=== PATIENT | female | born 1990 | race Caucasian/White ===

== ENCOUNTER 2017-03-13 23:29 | Emergency (ER) | payer BC ==
[2017-03-13 23:58] VITALS: BP 111/58
[2017-03-14] MEDS ORDERED: Orphenadrine 100 MG Tab.ER PO STA (01:06)
--- NOTE | 2017-03-14 01:12 | EDM.PDOC ---
ED HPI GENERAL MEDICAL PROBLEM - General Chief Complaint: Back Pain or Injury Stated Complaint: BACK PAIN Time Seen by Provider: 03/14/17 00:13 Source of Information: Reports: Patient, Family (Sister), RN Notes Reviewed History Limitations: Reports: No Limitations - History of Present Illness INITIAL COMMENTS - FREE TEXT/NARRATIVE: The patient states that she has had pain around her left scapula since 03/10/2017. She denies having had any injury. The pain is worse with deep breaths and coughing. A friend attempted to stretch the muscle, which only seemed to make it worse. She states that she has tried Tylenol, ibuprofen, Aleve, none of which haven't helped. No prior similar symptoms. The patient's PCP is Seda Reynolds, who has not been made aware of this situation. 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 Left Shoulder Pain Score (Numeric/FACES): 9 - Related Data Allergies Allergy/AdvReac Type Severity Reaction Status Date / Time No Known Allergies Allergy Verified 03/13/17 23:54 Home Meds: Home Meds Sertraline HCl [Sertraline HCl] 03/13/17 [History] Orphenadrine [Norflex] 1 tab PO Q12H #20 tab.er 03/14/17 [Rx] Past Medical History Psychiatric History: Reports: Anxiety, Depression - Past Surgical History Musculoskeletal Surgical History: Reports: ORIF (left humerus) Social & Family History - Family History Family Medical History: Noncontributory - Tobacco Use Smoking Status *Q: Current Every Day Smoker Years of Tobacco use: 9 Packs/Tins Daily: 1 - Alcohol Use Alcohol Use History: No - Recreational Drug Use Recreational Drug Use: No - Living Situation & Occupation Living situation: Reports: Single, with Family (Sister, [id number], niece) 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, [employer]) ED ROS GENERAL - Review of Systems Review Of Systems: See Below Constitutional: Reports: No Symptoms HEENT: Reports: No Symptoms Respiratory: Reports: No Symptoms Cardiovascular: Reports: No Symptoms Endocrine: Reports: No Symptoms GI/Abdominal: Reports: No Symptoms : Reports: No Symptoms Musculoskeletal: Reports: No Symptoms Skin: Reports: No Symptoms Neurological: Reports: No Symptoms Psychiatric: Reports: No Symptoms Hematologic/Lymphatic: Reports: No Symptoms Immunologic: Reports: No Symptoms ED EXAM, UPPER BACK/NECK PAIN - Physical Exam Exam: See Below Exam Limited By: No Limitations General Appearance: Alert, WD/WN, No Apparent Distress Eye Exam: Bilateral Eye: Normal Inspection Ears Exam: Normal External Exam, Hearing Grossly Normal Nose Exam: Normal Inspection, No Blood Throat/Mouth Exam: Normal Inspection, Normal Lips, Normal Voice, No Airway Compromise Head Exam: Atraumatic, Normocephalic Neck Exam: Normal Alignment, Normal Inspection Cardiovascular/Respiratory: Regular Rate, Rhythm, No M/R/G, Normal Peripheral Pulses, No JVD, Normal Breath Sounds, No Respiratory Distress GI/Abdominal: Normal Bowel Sounds, Soft, Non-Tender, No Organomegaly, No Distention, No Abnormal Bruit, No Mass (Female) Exam: Deferred Rectal (Female) Exam: Deferred Back Exam: Normal Inspection, Full Range of Motion, Other (Reproducible tenderness to palpation of the medial left parascapular muscles. Some muscle spasm is palpable in this area.) Extremities: Normal Inspection, Normal Range of Motion, No Pedal Edema, Normal Capillary Refill Neurologic: No Motor/Sensory Deficits, Alert, Oriented x 3 Psychiatric: Normal Affect Skin Exam: Normal Color, Warm/Dry Lymphatic: No Adenopathy Course - Vital Signs Last Recorded V/S: Last Vital Signs Temp 36.4 C 03/13/17 23:55 Pulse 70 03/13/17 23:55 Resp 18 03/13/17 23:55 BP 111/58 L 03/13/17 23:55 Pulse Ox 98 03/13/17 23:55 - Orders/Labs/Meds Orders: Active Orders 24 hr Category Date Time Status Chest 2V [CR] Stat Exams 03/14/17 00:34 Taken Meds: Medications Discontinued Medications Generic Name Dose Route Start Last Admin Trade Name Freq PRN Reason Stop Dose Admin Orphenadrine Citrate 100 mg 03/14/17 01:06 03/14/17 01:19 Norflex PO 03/14/17 01:07 100 mg ONETIME STA Administration - Radiology Interpretation Free Text/Narrative:: Two-view chest radiograph appears to be grossly normal. Cardiac silhouette is within normal limits. No pulmonary vascular congestion. No pleural effusions. No focal infiltrate. No pneumothorax. Formal read per the Radiologist pending. - Re-Assessments/Exams Free Text/Narrative Re-Assessment/Exam: 03/14/17 01:07 Chest radiograph results discussed with the patient and her sister. Her chest radiograph is normal. No pneumothorax or infiltrate to explain her left parascapular pain. Because it is reproducible with palpation, this appears to be due to a muscle spasm. I will start the patient on Norflex and e-prescribe the same. Departure - Departure Time of Disposition: 01:10 Disposition: Home, Self-Care 01 Condition: good Clinical Impression: Muscle spasm of back - Discharge Information Prescriptions: Orphenadrine [Norflex] 1 tab PO Q12H #20 tab.er Instructions: Muscle Cramps and Spasms Referrals: Lashae Reynolds INGREDIENT SCALER HELPER [Primary Care Provider] - Forms: ED Department Discharge Additional Instructions: You were seen in the emergency room for pain in your left shoulder blade area since Thursday. Workup in the ER included a chest x-ray, which was normal. You do not have pneumonia. You do not have a collapsed lung. Because your pain is reproducible with pressing on the muscle, it appears that your pain is due to a muscle spasm. You have been started on the muscle relaxant Norflex. Take one tablet every 12 hours, as prescribed. You may also take [id number] ibuprofen, 2-3 tablets (400-600 mg) every 8 hours, with food, as needed for discomfort. Followup with your PCP, Seda Reynolds, as needed. If any other problems, please do not hesitate to return to the ER. - My Orders Last 24 Hours: My Active Orders 03/14/17 00:34 Chest 2V [CR] Stat - Assessment/Plan Last 24 Hours: My Active Orders 03/14/17 00:34 Chest 2V [CR] Stat
--- NOTE | 2017-03-15 08:17 | CR ---
Chest: Two views of the chest were obtained. Comparison: No previous chest x-ray. Heart size and mediastinum are normal. Lungs are clear. Bony structures appear within normal limits for the patient's age. Plate and screws are partially seen within a humerus. Lungs are slightly hyperinflated. Impression: 1. Lungs are slightly hyperinflated. Please correlate if patient is a smoker or has asthma. 2. Other incidental findings. Nothing acute is appreciated. Diagnostic code #2
== END 2017-03-14 01:27 | disposition home or self-care (01) ==
LOC: JD.ED 23:29
DX: M62.830 Muscle spasm of back (principal); F41.9 Anxiety disorder, unspecified; F32.9 Major depressive disorder, single episode, unspecified; F17.210 Nicotine dependence, cigarettes, uncomplicated; Z79.899 Other long term (current) drug therapy
CPT/HCPCS: 71020; 99283; A9270

== ENCOUNTER 2017-07-13 00:47 | Emergency (ER) | payer BC, MEDICAID, OTHER ==
[2017-07-13 00:57] VITALS: BP 128/80
--- NOTE | 2017-07-13 01:19 | EDM.PDOC ---
ED HPI GENERAL MEDICAL PROBLEM - General Chief Complaint: Upper Extremity Injury/Pain Stated Complaint: FEELS LIKE RIGHT ARM HAS NO SERQULATION Time Seen by Provider: 07/13/17 01:05 Source of Information: Reports: Patient History Limitations: Reports: No Limitations - History of Present Illness INITIAL COMMENTS - FREE TEXT/NARRATIVE: The patient presents with a problem with her right arm. She feels there is a problem with the circulation. She admits to injecting meth in her right arm. She feels there is something wrong with her arm. She has some numbness at times and she has some pain. She has no redness, edema and her arm is not cold. She denies fever chills or cough. Onset: Gradual Duration: Week(s): (4) Location: Reports: Upper Extremity, Right Quality: Reports: Ache Severity: Moderate Improves with: Reports: None Worsens with: Reports: None Context: Reports: Activity (She admits to injecting meth in her right arm) Associated Symptoms: Reports: No Other Symptoms Right Arm Pain Score (Numeric/FACES): 5 - Related Data Allergies Allergy/AdvReac Type Severity Reaction Status Date / Time No Known Allergies Allergy Verified 07/13/17 00:56 Home Meds: Home Meds . [No Known Home Meds] 07/13/17 [History] Past Medical History - Past Health History Medical/Surgical History: Denies Medical/Surgical History Psychiatric History: Reports: Anxiety, Depression - Past Surgical History Musculoskeletal Surgical History: Reports: ORIF Social & Family History - Family History Family Medical History: Noncontributory - Tobacco Use Smoking Status *Q: Current Every Day Smoker Years of Tobacco use: 9 Packs/Tins Daily: 1 - Recreational Drug Use Recreational Drug Use: No - Living Situation & Occupation Living situation: Reports: Single, with Family (Sister, [id number], niece) 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, [employer], 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) Review of Systems - Review of Systems Review Of Systems: See Below Constitutional: Reports: No Symptoms Eyes: Reports: No Symptoms Ears: Reports: No Symptoms Nose: Reports: No Symptoms Mouth/Throat: Reports: No Symptoms Respiratory: Reports: No Symptoms Cardiovascular: Reports: No Symptoms GI/Abdominal: Reports: No Symptoms Genitourinary: Reports: No Symptoms Musculoskeletal: Reports: Other (Right arm numbness and pain) ED EXAM, GENERAL - Physical Exam Exam: See Below Exam Limited By: No Limitations General Appearance: Alert, No Apparent Distress Ears: Normal External Exam Nose: Normal Inspection Head: Atraumatic, Normocephalic Neck: Normal Inspection Respiratory/Chest: No Respiratory Distress, Lungs Clear, Normal Breath Sounds Cardiovascular: Regular Rate, Rhythm, No Edema, No Murmur GI/Abdominal: Soft, Non-Tender, No Organomegaly, No Mass Back Exam: Normal Inspection Extremities: Other (No erythema or edema to the right arm. Good sensation and pulses distally. Multiple puncuture wounds to the veins in her arm.) Course - Vital Signs Last Recorded V/S: Last Vital Signs Temp 98 F 07/13/17 00:54 Pulse 87 07/13/17 00:54 Resp 16 07/13/17 00:54 BP 128/80 07/13/17 00:54 Pulse Ox 100 07/13/17 00:54 - Re-Assessments/Exams Free Text/Narrative Re-Assessment/Exam: 07/13/17 01:18 She has good distal pulses so she has no arterial compromise. She has no erythema or edema to her arm. She needs to stop using meth. Departure - Departure Time of Disposition: 01:20 Disposition: Home, Self-Care 01 Condition: Good Clinical Impression: Methamphetamine abuse, Right arm pain - Discharge Information Additional Instructions: Please stop using meth. There are many risks from the meth and injecting such as local infections in your arm and infections to your heart or brain. See [facility]. They can help you stop.
== END 2017-07-13 01:28 | disposition home or self-care (01) ==
LOC: JD.ED 00:47
DX: F15.10 Other stimulant abuse, uncomplicated (principal); M79.601 Pain in right arm; F17.210 Nicotine dependence, cigarettes, uncomplicated
CPT/HCPCS: 99283

== ENCOUNTER 2017-07-21 14:40 | Emergency (ER) | payer MEDICAID, OTHER ==
--- NOTE | 2017-07-21 14:59 | EDM.PDOC ---
ED HPI GENERAL MEDICAL PROBLEM - General Chief Complaint: Upper Extremity Injury/Pain Stated Complaint: RIGHT ARM INJURY Time Seen by Provider: 07/21/17 15:15 Source of Information: Reports: Patient History Limitations: Reports: No Limitations - History of Present Illness INITIAL COMMENTS - FREE TEXT/NARRATIVE: 26-year-old female presents the ED for evaluation of right upper extremity deep aching pain. Patient states it's been using intravenous drugs on a daily basis i.e. injecting methamphetamine right arm for the last month. She stopped 5 days ago. 5 days ago the pain started and it's in the antecubital fossa and radiating up the arm particularly in the distribution of the radial nerve into the right shoulder deltoid area. She's been using the antecubital fossa primarily for IV drug use. Also been using the dorsal forearm vein. No fever no chills deep aching constant pain aggravated by certain movements. Onset: Gradual (about 5 days ago) Onset Date: 07/17/17 Duration: Day(s): Location: Reports: Upper Extremity, Left ( shoulder.) Quality: Reports: Ache, Pressure, Throbbing Severity: Moderate Improves with: Reports: None Worsens with: Reports: Movement (certain movements such as pronation supination seem to make it worse.) Context: Reports: Other (IV drug user i.e. injecting methamphetamines into the antecubital fossa on the side.). Denies: Activity, Exercise, Lifting, Sick Contact, Trauma Associated Symptoms: Reports: No Other Symptoms Treatments FILTERER: Reports: Other (see below) (none) Right Arm Pain Score (Numeric/FACES): 8 - Related Data Allergies Allergy/AdvReac Type Severity Reaction Status Date / Time No Known Allergies Allergy Verified 07/21/17 14:54 Home Meds: Home Meds Ibuprofen [Motrin] 800 mg PO Q6H #24 tablet 07/21/17 [Rx] Past Medical History - Past Health History Medical/Surgical History: Denies Medical/Surgical History Psychiatric History: Reports: Anxiety, Depression - Past Surgical History Musculoskeletal Surgical History: Reports: ORIF Social & Family History - Family History Family Medical History: Noncontributory - Tobacco Use Smoking Status *Q: Current Every Day Smoker Years of Tobacco use: 9 Packs/Tins Daily: 1 - Recreational Drug Use Recreational Drug Use: No Drug Use in Last 12 Months: Yes Recreational Drug Type: Reports: Methamphetamine - Living Situation & Occupation Living situation: Reports: Single, with Family (Sister, [id number], niece) 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 See history of present illness) Skin: Reports: Bruising Neurological: Reports: No Symptoms (and skeletal fossa right side from IV drug use.) Psychiatric: Reports: No Symptoms ED EXAM, GENERAL - Physical Exam Exam: See Below Exam Limited By: No Limitations General Appearance: Alert, WD/WN, Anxious, Mild Distress Extremities: Other (examination was limited to the right upper extremity. 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 There is ecchymoses in the antecubital fossa most recent IV drug injection. There is also darkening of the vein on the radial forearm. Pain is worsened on palpation of the biceps tendon where it inserts into the ulna and worsened with pronation supination movements. Pain is deep and aching in travels in the radial nerve distribution around the mid humerus up into the axilla and shoulder area and the deltoid muscle. There was no evidence of any apical epitrochlear lymphadenopathy or axillary adenopathy. The biceps muscle itself is within normal limits. There is no signs of infection in this limb or phlebitis. It appears that she has missed the vein and struck her biceps tendon and/or radial nerve causing neuritis or tendinitis which is causing the pain in her right upper extremity. She plans on not using methamphetamines anymore. She' s not interested in treatment at this time.) Neurological: Alert, Oriented, CN II-XII Intact, Normal Cognition, Normal Gait Psychiatric: Anxious Skin Exam: Warm, Dry, Intact, Normal Color, No Rash Course - Vital Signs Last Recorded V/S: Last Vital Signs Temp 36.2 C 07/21/17 14:54 Pulse 88 07/21/17 14:54 Resp 16 07/21/17 14:54 BP 123/80 07/21/17 14:54 Pulse Ox 99 07/21/17 14:54 - Radiology Interpretation Free Text/Narrative:: 26 show female presents to the ED for evaluation of right upper extremity pain. Appears this is secondary to IV drug abuse for the last month. Started injecting on a daily basis methamphetamines. Antecubital fossa was utilized on many occasions for IV drug injection. Pain started in the right antecubital fossa and radiates up the arm for the last 5 days. This scared her enough that she stopped using methamphetamines with minimal withdrawal symptoms. At this time she does not plan on going back to this habit. On examination she is exquisitely tender on palpation of the biceps tendon where it inserts into the ulna. The pain travels along the distribution of the radial nerve i.e. around the lateral mid humerus and then up into the axilla and shoulder area. Further appears to be a component of either referred pain from the tendon itself or radial nerve neuritis as well. There is no evidence of infection in this limb or phlebitis. Or DVT. Plan Motrin 800 mg every 6-8 hours when necessary for the next 10 days to use simply can alleviate some of the inflammation. She should be followed for follow-up in 14 days time if not markedly improved. Departure - Departure Time of Disposition: 15:16 Disposition: Home, Self-Care 01 Condition: Fair Clinical Impression: Biceps tendonitis on right, Neuritis - Discharge Information Prescriptions: Ibuprofen [Motrin] 800 mg PO Q6H #24 tablet Referrals: PCP,None [Primary Care Provider] - Forms: ED Department Discharge Additional Instructions: evaluation in the emergency department today in regards to right upper extremity pain for the last 5 days. This appears to be the result of intravenous drug abuse. The needle appears to have inadvertently hit the biceps tendon where it inserts into the ulnar bone on her forearm. The distribution of the pain however is in the radial nerve distribution suggesting possible irritation of the radial nerve as well which we call neuritis. There is no evidence of an infection in the venous system or in the arm itself. There is no lymph node swelling. Treatment is time to heal. Suggest anti-inflammatory such as Motrin 800 mg every 6-8 hours to reduce pain and inflammation. May place ice he heat on the arm as well at bedtime it as this may alleviate some of the pain and allow sleep. This pain will dissipate over time nerve pain usually within 6 weeks to 12 weeks .tendinitis usually would dissipate over a period of 6 weeks.
[2017-07-21 15:00] VITALS: BP 123/80
== END 2017-07-21 15:25 | disposition home or self-care (01) ==
LOC: JD.ED 14:40
DX: M75.21 Bicipital tendinitis, right shoulder (principal); M79.2 Neuralgia and neuritis, unspecified; F32.9 Major depressive disorder, single episode, unspecified; F17.210 Nicotine dependence, cigarettes, uncomplicated; Z98.890 Other specified postprocedural states
CPT/HCPCS: 99283

== ENCOUNTER 2017-08-08 00:02 | Emergency (ER) | payer MEDICAID, OTHER ==
[2017-08-08 00:33] VITALS: BP 127/89
--- NOTE | 2017-08-08 01:33 | EDM.PDOC ---
ED HPI GENERAL MEDICAL PROBLEM - General Chief Complaint: Skin Complaint Stated Complaint: SKIN AND SHOULDER INFECTION Time Seen by Provider: 08/08/17 00:29 Source of Information: Reports: Patient, RN Notes Reviewed History Limitations: Reports: Altered Mental Status (The patient is somewhat hyperactive, agitated, and has difficulty focusing on questions) - History of Present Illness INITIAL COMMENTS - FREE TEXT/NARRATIVE: The patient states that she developed a lump to her left forearm around for 5 days ago. She acknowledges that it is in an area that she has been injecting methamphetamine. She states that the pain from her lump radiates up her left upper extremity to her right upper extremity and right scapular area. She believes that her right upper extremity is swollen and red. She has not had a fever, and is afebrile here in the ED. She also reports feeling lightheaded sometimes. It is noted that her oxygen saturation here in the ED is 100% on room air. Of note, the patient has a history of anxiety and depression, but has not taken any of her psychiatric medications for about one month. She was seen by Marie Wong NP, at the clinic 08/05/2017. The patient states that no test were done, but that she was prescribed Keflex 500 mg po Q12 hrs x 7 days. The patient states that she has been compliant with this. She now presents to the ED because of failure of resolution of her symptoms. She states that she was told by Ms. Wong that the antibiotic would be effective within 2 hours. The patient states that she has been injecting 1/4 to 1/2 g of methamphetamine per day for the past month. Her last use was yesterday morning, 08/07/2017. She states that she has been in inpatient drug and alcohol treatment 3 times - the first in 2009 at [facility] for 30 days, then in 2010 for 7 days before she got kicked out, then in 2013 for one month. She states that she has never gone to outpatient treatment. The patient does not have a PCP. Right Shoulder Pain Score (Numeric/FACES): 9 - Related Data Allergies Allergy/AdvReac Type Severity Reaction Status Date / Time No Known Allergies Allergy Verified 07/21/17 14:54 Home Meds: Home Meds Ibuprofen [Motrin] 800 mg PO Q6H #24 tablet 07/21/17 [Rx] Past Medical History Musculoskeletal History: Reports: Fracture (left humerus) Psychiatric History: Reports: Addiction (methamphetamine), Anxiety (untreated), Depression (untreated) - Past Surgical History Musculoskeletal Surgical History: Reports: ORIF (left humerus) Social & Family History - Family History Family Medical History: Noncontributory - Tobacco Use Smoking Status *Q: Current Every Day Smoker Years of Tobacco use: 10 Packs/Tins Daily: 0.5 - Caffeine Use Caffeine Use: Reports: Coffee, Energy Drinks, Soda, Tea - Alcohol Use Alcohol Use History: Yes Date/Time of Last Drink Comment: History of alcoholism. No alcohol since 2013. - Recreational Drug Use Recreational Drug Use: Yes Drug Use in Last 12 Months: Yes Recreational Drug Type: Reports: Benzodiazepines, Dilaudid, Marijuana/Hashish ( smokes on occasion), Methamphetamine (injects once or twice a day), Oxycodone, Vicodin - Living Situation & Occupation Living situation: Reports: Single, Alone Occupation: Unemployed ED ROS GENERAL - Review of Systems Review Of Systems: See Below Constitutional: Reports: No Symptoms HEENT: Reports: No Symptoms Respiratory: Reports: No Symptoms Cardiovascular: Reports: No Symptoms Endocrine: Reports: No Symptoms GI/Abdominal: Reports: No Symptoms : Reports: No Symptoms Musculoskeletal: Reports: No Symptoms Skin: Reports: No Symptoms Neurological: Reports: No Symptoms Psychiatric: Reports: No Symptoms Hematologic/Lymphatic: Reports: No Symptoms Immunologic: Reports: No Symptoms ED EXAM, SKIN/RASH Exam: See Below Exam Limited By: No Limitations General Appearance: Alert, WD/WN, Anxious Eye Exam: Bilateral Eye: Normal Inspection Ears: Normal External Exam, Hearing Grossly Normal Nose: Normal Inspection, No Blood Throat/Mouth: Normal Inspection, Normal Lips, Normal Voice, No Airway Compromise Head: Atraumatic, Normocephalic Neck: Normal Inspection, Full Range of Motion Respiratory/Chest: No Respiratory Distress, Lungs Clear, Normal Breath Sounds, No Accessory Muscle Use Cardiovascular: Normal Peripheral Pulses, Regular Rate, Rhythm, No Gallop, No JVD, No Murmur, No Rub Peripheral Pulses: 4+: Radial (L), Radial (R) GI/Abdominal: Normal Bowel Sounds, Soft, Non-Tender, No Organomegaly, No Distention, No Abnormal Bruit, No Mass (Female) Exam: Deferred Rectal (Female) Exam: Deferred Back Exam: Normal Inspection, Full Range of Motion, Other (No visible abnormality to the patient's back, such as erythema, swelling, ecchymosis, abrasion, or rash.) Extremities: Normal Range of Motion, No Pedal Edema, Normal Capillary Refill, Other (There is an indurated lump measuring approximately 1.5 cm diameter, with mild erythema, tender to palpation, on the proximal aspect of the left forearm, over the radius. Areas no associated surrounding erythema or streaking. No swelling or erythema to the left forearm. No visible abnormal [place] of the right forearm, such as swelling, erythema, ecchymosis, or abrasions. Neurovascular status of both upper summaries is intact) Neurological: Alert, Oriented, No Motor/Sensory Deficits, Other (Mentally agitated) Psychiatric: Anxious Skin: Warm, Dry, Intact, Normal Color, No Rash Course - Vital Signs Last Recorded V/S: Last Vital Signs Temp 36.6 C 08/08/17 00:28 Pulse 113 H 08/08/17 00:28 Resp 20 08/08/17 00:28 BP 127/89 08/08/17 00:28 Pulse Ox 100 08/08/17 00:28 - Orders/Labs/Meds Orders: Active Orders 24 hr Category Date Time Status CBC WITH MANUAL DIFF [HEME] Stat Lab 08/08/17 01:38 Results CULTURE BLOOD [BC] Stat Lab 08/08/17 01:38 Received CULTURE BLOOD [BC] Stat Lab 08/08/17 01:47 Received Blood Culture x2 Reflex Set [OM.PC] Stat Oth 08/08/17 01:23 Ordered Labs: Laboratory Tests 08/08/17 Range/Units 01:38 WBC 7.24 (3.98-10.04) K/mm3 RBC 4.49 (3.98-5.22) M/mm3 Hgb 13.6 (11.2-15.7) gm/L Hct 40.4 (34.1-44.9) % MCV 90.0 (79.4-94.8) fl MCH 30.3 (25.6-32.2) pg MCHC 33.7 (32.2-35.5) g/dl RDW Std Deviation 44.7 (36.4-46.3) fL Plt Count 193 (182-369) K/mm3 MPV 10.7 (9.4-12.3) fl - Re-Assessments/Exams Free Text/Narrative Re-Assessment/Exam: 08/08/17 01:39 The lump on the patient's left forearm does not appear to be significantly infected, and I see no signs of spreading infection. There is no murmur on auscultation of the patient's heart, and she does not have a fever, therefore, clinically, I do not suspect endocarditis. Nevertheless, I have ordered a CBC and 2 blood cultures. If the patient's WBC count is elevated with bandemia, I will likely broaden the patient's antibiotic coverage. If her WBC count is unremarkable, then I believe that Keflex is an appropriate antibiotic. If the patient's blood cultures return positive, antibiotics could then be specified. 08/08/17 02:09 The patient's CBC is normal. From an infection standpoint, I am recommending that she continue the Keflex as currently prescribed. I will refer her to Dr. Bridges or Dr. Cannon for follow-up. The patient acknowledged that she needs to stop using methamphetamine. I offered to call [facility] to see if we could arrange for a crisis bed for the patient, however, the patient refused, saying that she has some things that she needs to get done before she can go into treatment. She agreed to go to [facility] 08/10/2017, for evaluation. I explained that she does not need to have an appointment if she shows up between the hours of 08:00 and 10:30. Departure - Departure Time of Disposition: 02:11 Disposition: Home, Self-Care 01 Condition: Fair Clinical Impression: Skin infection, Methamphetamine abuse - Discharge Information Referrals: PCP,None [Primary Care Provider] - Yasmeen Bridges [Physician] - Forms: ED Department Discharge Additional Instructions: You were seen in the emergency room for a concern of a spreading infection. Workup in the ER included a CBC and 2 blood cultures. Your CBC returned normal, indicating you do not have a systemic infection. We recommend that you continue taking the Keflex every 12 hours, as prescribed. We recommend that you follow-up with either Dr. Bridges or Dr. Cannon in the clinic early this coming week, for continued treatment. We STRONGLY recommend going to [facility] on Thursday, 2016, between the hours of 8:00 and 10:30, for evaluation. No appointment necessary. They are located at: [address] [place] [address] If any other problems, please do not hesitate to return to the ER. - My Orders Last 24 Hours: My Active Orders 08/08/17 01:23 Blood Culture x2 Reflex Set [OM.PC] Stat 08/08/17 01:38 CBC WITH MANUAL DIFF [HEME] Stat CULTURE BLOOD [BC] Stat 08/08/17 01:47 CULTURE BLOOD [BC] Stat - Assessment/Plan Last 24 Hours: My Active Orders 08/08/17 01:23 Blood Culture x2 Reflex Set [OM.PC] Stat 08/08/17 01:38 CBC WITH MANUAL DIFF [HEME] Stat CULTURE BLOOD [BC] Stat 08/08/17 01:47 CULTURE BLOOD [BC] Stat
== END 2017-08-08 02:23 | disposition home or self-care (01) ==
LOC: JD.ED 00:02
DX: L08.9 Local infection of the skin and subcutaneous tissue, unspecified (principal); M25.511 Pain in right shoulder; F15.10 Other stimulant abuse, uncomplicated; F41.9 Anxiety disorder, unspecified; F32.9 Major depressive disorder, single episode, unspecified; F17.210 Nicotine dependence, cigarettes, uncomplicated
CPT/HCPCS: 36415; 85025; 87040; 99282; 99283

== ENCOUNTER 2017-10-09 18:17 | Emergency (ER) | payer MEDICAID ==
[2017-10-09 18:31] VITALS: BP 122/72
[2017-10-09] MEDS ORDERED: Ketorolac 30 MG/ML SDV IVPUSH ONE (19:16)
[2017-10-09] MEDS ORDERED: Sodium Chloride 0.9% 10 ML Syringe FLUSH PRN (19:16)
[2017-10-09] MEDS ORDERED: Ondansetron 4 MG/2 ML SDV IVPUSH ONE (19:16)
[2017-10-09] MEDS ORDERED: Sodium Chloride 0.9% 1,000 ML IV ONE (19:16)
--- NOTE | 2017-10-09 19:42 | EDM.PDOC ---
ED HPI GENERAL MEDICAL PROBLEM - General Chief Complaint: Abdominal Pain Stated Complaint: SENT BY CLINIC FOR FLUIDS Time Seen by Provider: 10/09/17 18:42 Source of Information: Reports: Patient History Limitations: Reports: No Limitations - History of Present Illness INITIAL COMMENTS - FREE TEXT/NARRATIVE: 26 year old female present from the clinic for fluids. Patient was recently, about 3 weeks ago, diagnosed with hepatitis C. Likely from her previous IV drug use. She has now been clean since finding out she has hep C . She is scheduled to see GI in [place] in early October for further treatment and management. Patient called the clinic today reports symptoms of nausea, headaches, vomiting and fatigue. She reports her eyes look jaundice and sunken. She feels her liver is swollen. No change in stool color. Urine is darker than normal. Denies any pruritus. She reports pain in her abdomen and into her back. She was instructed to come to the ER for fluids. Patient reports she only drinks socially and has not done so in several years. Left Abdomen Pain Score (Numeric/FACES): 3 - Related Data Allergies Allergy/AdvReac Type Severity Reaction Status Date / Time No Known Allergies Allergy Verified 07/21/17 14:54 Home Meds: Home Meds Ibuprofen [Motrin] 800 mg PO Q6H #24 tablet 07/21/17 [Rx] Ondansetron [Zofran ODT] 4 mg PO Q6H PRN #20 tab.dis 10/09/17 [Rx] Venlafaxine [Effexor] 37.5 mg PO DAILY 10/09/17 [History] hydrOXYzine HCl [Atarax] 25 mg PO TID PRN 10/09/17 [History] traZODone 50 mg PO DAILY 10/09/17 [History] Past Medical History - Past Health History Medical/Surgical History: Denies Medical/Surgical History Musculoskeletal History: Reports: Fracture Psychiatric History: Reports: Addiction, Anxiety, Depression - Past Surgical History Musculoskeletal Surgical History: Reports: ORIF Other Musculoskeletal Surgeries/Procedures:: left arm Social & Family History - Family History Family Medical History: Noncontributory - Tobacco Use Smoking Status *Q: Current Every Day Smoker Years of Tobacco use: 10 Packs/Tins Daily: 0.5 - Caffeine Use Caffeine Use: Reports: Coffee, Energy Drinks, Soda, Tea - Recreational Drug Use Recreational Drug Use: Yes Drug Use in Last 12 Months: Yes Recreational Drug Type: Reports: Methamphetamine Other Recreational Drug Type: injection Recreational Drug Use Frequency: Daily - Living Situation & Occupation Living situation: Reports: Single, Alone Occupation: Unemployed ED ROS GENERAL - Review of Systems Review Of Systems: See Below Constitutional: Reports: Malaise, Fatigue. Denies: Fever GI/Abdominal: Reports: Abdominal Pain, Nausea, Vomiting : Reports: Other (reports darker urine than normal). Denies: Dysuria Musculoskeletal: Reports: Back Pain Skin: Reports: Jaundice (eyes). Denies: Pruritis Neurological: Reports: Headache ED EXAM, GI/ABD - Physical Exam Exam: See Below Exam Limited By: No Limitations General Appearance: Alert, WD/WN, No Apparent Distress Eyes: Bilateral: Normal Appearance Ears: Normal External Exam Nose: Normal Inspection Throat/Mouth: Normal Inspection, Normal Lips, Normal Voice, No Airway Compromise Neck: Normal Inspection Respiratory/Chest: No Respiratory Distress, Lungs Clear, Normal Breath Sounds Cardiovascular: Normal Peripheral Pulses, Regular Rate, Rhythm, No Murmur GI/Abdominal Exam: Normal Bowel Sounds, Soft, Non-Tender, No Organomegaly, No Distention Neurological: Alert, Oriented, Normal Cognition Psychiatric: Normal Affect, Normal Mood Skin Exam: Warm, Dry, Normal Color. No: Jaundice Course - Vital Signs Last Recorded V/S: Last Vital Signs Temp 36.5 C 10/09/17 18:30 Pulse 98 10/09/17 18:30 Resp 20 10/09/17 18:30 BP 122/72 10/09/17 18:30 Pulse Ox 100 10/09/17 18:30 - Orders/Labs/Meds Labs: Laboratory Tests 10/09/17 10/09/17 10/09/17 Range/Units 19:25 19:25 19:25 WBC 7.99 (3.98-10.04) K/mm3 RBC 4.34 (3.98-5.22) M/mm3 Hgb 13.4 (11.2-15.7) gm/L Hct 40.8 (34.1-44.9) % MCV 94.0 (79.4-94.8) fl MCH 30.9 (25.6-32.2) pg MCHC 32.8 (32.2-35.5) g/dl RDW Std Deviation 47.2 H (36.4-46.3) fL Plt Count 196 (182-369) K/mm3 MPV 11.4 (9.4-12.3) fl Neut % (Auto) 47.5 (34.0-71.1) % Lymph % (Auto) 41.9 (19.3-51.7) % [place] % (Auto) 7.9 (4.7-12.5) % Eos % (Auto) 1.9 (0.7-5.8) Baso % (Auto) 0.5 (0.1-1.2) % Neut # (Auto) 3.80 (1.56-6.13) K/mm3 Lymph # (Auto) 3.35 (1.18-3.74) K/mm3 [place] # (Auto) 0.63 H (0.24-0.36) K/mm3 Eos # (Auto) 0.15 (0.04-0.36) K/mm3 Baso # (Auto) 0.04 (0.01-0.08) K/mm3 PT 10.7 (8.0-13.0) SECONDS INR 0.98 APTT 27 (22-36) SECONDS Sodium 141 (136-145) mEq/L Potassium 3.7 (3.5-5.1) mEq/L Chloride 106 (98-107) mEq/L Carbon Dioxide 27 (21-32) mEq/L Anion Gap 11.7 (5-15) BUN 17 (7-18) mg/dL Creatinine 0.8 (0.55-1.02) mg/dL Est Cr Clr Drug Dosing 99.76 mL/min Estimated GFR (MDRD) > 60 (>60) mL/min BUN/Creatinine Ratio 21.3 H (14-18) Glucose 85 (74-106) mg/dL Calcium 9.2 (8.5-10.1) mg/dL Total Bilirubin 0.4 (0.2-1.0) mg/dL AST 27 (15-37) U/L ALT 32 (14-59) U/L Alkaline Phosphatase 66 (46-116) U/L Total Protein 7.7 (6.4-8.2) g/dl Albumin 3.9 (3.4-5.0) g/dl Globulin 3.8 gm/dL Albumin/Globulin Ratio 1.0 (1-2) Urine Color (Yellow) Urine Appearance (Clear) Urine pH (5.0-8.0) Ur Specific [place] (1.005-1.030) Urine Protein (Negative) Urine Glucose (UA) (Negative) Urine Ketones (Negative) Urine Occult Blood (Negative) Urine Nitrite (Negative) Urine Bilirubin (Negative) Urine Urobilinogen (0.2-1.0) Ur Leukocyte Esterase (Negative) Urine RBC (0-5) /hpf Urine WBC (0-5) /hpf Ur Epithelial Cells (0-5) /hpf Urine Bacteria (FEW) /hpf Urine Mucus (FEW) /hpf 10/09/17 Range/Units 19:25 WBC (3.98-10.04) K/mm3 RBC (3.98-5.22) M/mm3 Hgb (11.2-15.7) gm/L Hct (34.1-44.9) % MCV (79.4-94.8) fl MCH (25.6-32.2) pg MCHC (32.2-35.5) g/dl RDW Std Deviation (36.4-46.3) fL Plt Count (182-369) K/mm3 MPV (9.4-12.3) fl Neut % (Auto) (34.0-71.1) % Lymph % (Auto) (19.3-51.7) % [place] % (Auto) (4.7-12.5) % Eos % (Auto) (0.7-5.8) Baso % (Auto) (0.1-1.2) % Neut # (Auto) (1.56-6.13) K/mm3 Lymph # (Auto) (1.18-3.74) K/mm3 [place] # (Auto) (0.24-0.36) K/mm3 Eos # (Auto) (0.04-0.36) K/mm3 Baso # (Auto) (0.01-0.08) K/mm3 PT (8.0-13.0) SECONDS INR APTT (22-36) SECONDS Sodium (136-145) mEq/L Potassium (3.5-5.1) mEq/L Chloride (98-107) mEq/L Carbon Dioxide (21-32) mEq/L Anion Gap (5-15) BUN (7-18) mg/dL Creatinine (0.55-1.02) mg/dL Est Cr Clr Drug Dosing mL/min Estimated GFR (MDRD) (>60) mL/min BUN/Creatinine Ratio (14-18) Glucose (74-106) mg/dL Calcium (8.5-10.1) mg/dL Total Bilirubin (0.2-1.0) mg/dL AST (15-37) U/L ALT (14-59) U/L Alkaline Phosphatase (46-116) U/L Total Protein (6.4-8.2) g/dl Albumin (3.4-5.0) g/dl Globulin gm/dL Albumin/Globulin Ratio (1-2) Urine Color Yellow (Yellow) Urine Appearance Clear (Clear) Urine pH 6.5 (5.0-8.0) Ur Specific [place] 1.020 (1.005-1.030) Urine Protein Negative (Negative) Urine Glucose (UA) Negative (Negative) Urine Ketones Negative (Negative) Urine Occult Blood Negative (Negative) Urine Nitrite Negative (Negative) Urine Bilirubin Negative (Negative) Urine Urobilinogen 0.2 (0.2-1.0) Ur Leukocyte Esterase Negative (Negative) Urine RBC 0-5 (0-5) /hpf Urine WBC 0-5 (0-5) /hpf Ur Epithelial Cells 0-5 (0-5) /hpf Urine Bacteria Few (FEW) /hpf Urine Mucus Few (FEW) /hpf Meds: Medications Discontinued Medications Generic Name Dose Route Start Last Admin Trade Name Freq PRN Reason Stop Dose Admin Sodium Chloride 1,000 mls @ 999 mls/hr 10/09/17 19:16 10/09/17 19:33 Normal Saline IV 10/09/17 20:16 999 mls/hr ONETIME ONE Administration Ketorolac Tromethamine 30 mg 10/09/17 19:16 10/09/17 19:33 Toradol IVPUSH 10/09/17 19:17 30 mg ONETIME ONE Administration Ondansetron HCl 4 mg 10/09/17 19:16 10/09/17 19:33 Zofran IVPUSH 10/09/17 19:17 4 mg ONETIME ONE Administration Sodium Chloride 10 ml 10/09/17 19:16 10/09/17 19:33 Saline Flush FLUSH 10 ml ASDIRECTED PRN Administration Keep Vein Open - Re-Assessments/Exams Free Text/Narrative Re-Assessment/Exam: 10/09/17 20:46 I reviewed the labs with the patient. She feels improved after fluids. I will have her continue with her current plan of care. Discharge instructions as documented . Departure - Departure Time of Disposition: 20:46 Disposition: Home, Self-Care 01 Condition: Good Clinical Impression: Nausea - Discharge Information Prescriptions: Ondansetron [Zofran ODT] 4 mg PO Q6H PRN #20 tab.dis PRN Reason: Nausea Instructions: Nausea, Adult Referrals: Lashae Reynolds TRAVEL ACC[employer]MODATION INSPECTOR [Primary Care Provider] - Forms: ED Department Discharge Additional Instructions: Zofran 1 tab sublingual every 6 hours as needed for nausea. make sure you are drinking plenty of fluids. Follow up with your primary care provider Thursday as planned. Please return to the ER should your symptoms change or worsen.
== END 2017-10-09 21:02 | disposition home or self-care (01) ==
LOC: JD.ED 18:17
DX: R11.2 Nausea with vomiting, unspecified (principal); F17.210 Nicotine dependence, cigarettes, uncomplicated; Z79.899 Other long term (current) drug therapy
CPT/HCPCS: 36415; 80053; 81001; 85025; 85610; 85730; 96361; 96374; 96375; 99284; J1885; J2405; J7040; J7050

== ENCOUNTER 2017-10-18 22:26 | Emergency (ER) | payer MEDICAID ==
[2017-10-18 22:42] VITALS: BP 125/76
== END 2017-10-18 23:24 | disposition left against medical advice (07) ==
LOC: JD.ED 22:26
DX: Z53.21 Procedure and treatment not carried out due to patient leaving prior to being seen by health care provider (principal)
CPT/HCPCS: 99284

== ENCOUNTER 2018-02-13 23:34 | Emergency (ER) | payer MEDICAID ==
[2018-02-13 23:44] VITALS: BP 132/87
[2018-02-14] MEDS ORDERED: Ampicillin/Sulbactam Na 3 GM in Sodium Chloride 0.9% 100 ML IV ONE (00:12)
[2018-02-14] MEDS ORDERED: LORazepam 2 MG/ML SDV IVPUSH STA (00:15)
[2018-02-14] MEDS ORDERED: Sodium Chloride 0.9% 1,000 ML IV SCH (00:15)
--- NOTE | 2018-02-14 00:16 | EDM.PDOC ---
ED HPI GENERAL MEDICAL PROBLEM - General Chief Complaint: Upper Extremity Injury/Pain Stated Complaint: DRUG USE Time Seen by Provider: 02/13/18 23:50 Source of Information: Reports: Patient, Significant Other (Boyfriend) History Limitations: Reports: Altered Mental Status - History of Present Illness INITIAL COMMENTS - FREE TEXT/NARRATIVE: History is very difficult to obtain from the patient, as she is likely under the influence of methamphetamine. She has difficulty focusing on questions asked of her, but perseverates on the idea that one of her teeth is falling out. She repeatedly asks for water, implying that her tooth will fall out if she does not get any immediately. She expresses paranoia, stating several times that she hopes that this is not a set up. 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 She states that she was in a 30 day inpatient treatment program for most, if not all, of September 2017, and that she has been clean since, up until last night. She states that she simply wanted to buy marijuana. She gave $40 to someone, who then returned with methamphetamine instead. The patient states that she knew it was a bad idea, but she injected the methamphetamine with a used needle numerous times in both antecubital fossas, as she kept missing a vein. She now presents with swelling and erythema to the left anterior cubital fossa. She states that her left arm feels like it is going to "blow up". She is concerned that there is an infection in her arm. Her right antecubital fossa has several ecchymoses, but no swelling or erythema. The patient states that she has known hepatitis C due to IVDA. She is not known to be HIV positive. The patient states that she does not have a PCP, but her current psychiatric medications are prescribed by Dr. Stein at [facility]. left upper arm Pain Score (Numeric/FACES): 5 - Related Data Allergies Allergy/AdvReac Type Severity Reaction Status Date / Time No Known Allergies Allergy Verified 02/13/18 23:44 Home Meds: Home Meds Venlafaxine [Effexor] 37.5 mg PO DAILY 10/09/17 [History] hydrOXYzine HCl [Atarax] 25 mg PO TID PRN 10/09/17 [History] traZODone 50 mg PO DAILY 12/22/17 [History] risperiDONE [Risperdal] 2 mg PO BEDTIME 10/18/17 [History] Amoxicillin/Clavulanate K [Augmentin 875-125 MG] 1 tab PO Q12H #14 tablet [Rx] Past Medical History Musculoskeletal History: Reports: Fracture (left humerus) Psychiatric History: Reports: Addiction (Methamphetamine), Anxiety, Depression - Infectious Disease History Infectious Disease History: Reports: Hepatitis C - Past Surgical History Musculoskeletal Surgical History: Reports: ORIF (left humerus) Social & Family History - Family History Family Medical History: Noncontributory - Tobacco Use Smoking Status *Q: Current Every Day Smoker Years of Tobacco use: 11 Packs/Tins Daily: 0.5 - Caffeine Use Caffeine Use: Reports: Soda - Alcohol Use Alcohol Use History: Yes Date/Time of Last Drink Comment: History of alcoholism, but sober since 2013 - Recreational Drug Use Recreational Drug Use: Yes Drug Use in Last 12 Months: Yes Recreational Drug Type: Reports: Benzodiazepines, Marijuana/Hashish, Methamphetamine, Other (see below) (Opioids) Other Recreational Drug Type: injection Recreational Drug Use Frequency: Binges - Living Situation & Occupation Living situation: Reports: Single, Alone Occupation: Unemployed Review of Systems - Review of Systems Review Of Systems: ROS reveals no pertinent complaints other than HPI. ED EXAM, GENERAL - Physical Exam Exam: See Below Exam Limited By: Altered Mental Status General Appearance: Alert, WD/WN Eye Exam: Bilateral Eye: Normal Inspection Ears: Normal External Exam, Hearing Grossly Normal Nose: Normal Inspection, No Blood Throat/Mouth: Normal Inspection, Normal Lips, Normal Teeth (tooth #9 slightly loose?), Normal Gums, Normal Oropharynx, Normal Voice, No Airway Compromise Head: Atraumatic, Normocephalic Neck: Normal Inspection, Full Range of Motion Respiratory/Chest: No Respiratory Distress, Lungs Clear, Normal Breath Sounds, No Accessory Muscle Use Cardiovascular: Normal Peripheral Pulses, No Edema, No Gallop, No JVD, No Murmur , No Rub, Tachycardia (regular) Peripheral Pulses: 4+: Radial (L), Radial (R) GI/Abdominal: Normal Bowel Sounds, Soft, Non-Tender, No Organomegaly, No Distention, No Abnormal Bruit, No Mass (Female) Exam: Deferred Rectal (Female) Exam: Deferred Back Exam: Normal Inspection, Full Range of Motion, NT Extremities: Normal Range of Motion, No Pedal Edema, Normal Capillary Refill, Other (Swelling and erythema to the left antecubital fossa measuring approximately 5 cm wide by 9 cm in length. Minimal tenderness to this area. No fluctuance. Mild calor. Neurovascular status of the left upper extremity is intact. Several ecchymosis to the right antecubital fossa, but no associated swelling or erythema.) Neurological: Alert, No Motor/Sensory Deficits, Other (Hyperactive. Perseverates on ideas.) Psychiatric: Anxious, Other (Paranoid) Skin Exam: Warm, Dry, Intact, Normal Color, No Rash EKG INTERPRETATION EKG Date: 02/14/18 Time: 00:20 Rhythm: NSR Rate (Beats/Min): [address] [place]: Normal P-Wave: Present QRS: Normal ST-T: Normal QT: Normal Comparison: NA - No Prior EKG Course - Vital Signs Last Recorded V/S: Last Vital Signs Temp 36.9 C 02/13/18 23:40 Pulse 115 H 02/13/18 23:40 Resp 18 02/13/18 23:40 BP 132/87 02/13/18 23:40 Pulse Ox 98 02/13/18 23:40 - Orders/Labs/Meds Orders: Active Orders 24 hr Category Date Time Status EKG Documentation Completion [RC] STAT Care 02/14/18 00:07 Active CULTURE BLOOD [BC] Stat Lab 02/14/18 00:15 Received CULTURE BLOOD [BC] Stat Lab 02/14/18 00:37 Received DRUG SCREEN, URINE [URCHEM] Stat Lab 02/14/18 02:27 Ordered HCG QUALITATIVE,URINE [URCHEM] Stat Lab 02/14/18 02:27 Ordered Sodium Chloride 0.9% [Normal Saline] 1,000 ml Med 02/14/18 00:15 Active IV ASDIRECTED Blood Culture x2 Reflex Set [OM.PC] Stat Oth 02/14/18 00:11 Ordered Medication Orders Sodium Chloride (Normal Saline) 1,000 mls @ 150 mls/hr IV ASDIRECTED RAYSHAWN Last Admin: 02/14/18 00:34 Dose: 150 mls/hr Labs: Laboratory Tests 02/14/18 02/14/18 02/14/18 Range/Units 00:15 00:15 00:15 WBC 11.82 H (3.98-10.04) K/mm3 RBC 4.67 (3.98-5.22) M/mm3 Hgb 14.4 (11.2-15.7) gm/L Hct 42.9 (34.1-44.9) % MCV 91.9 (79.4-94.8) fl MCH 30.8 (25.6-32.2) pg MCHC 33.6 (32.2-35.5) g/dl RDW Std Deviation 44.0 (36.4-46.3) fL Plt Count 187 (182-369) K/mm3 MPV 11.3 (9.4-12.3) fl Neutrophils % (Manual) 68 H (40-60) % Band Neutrophils % 0 (0-10) % Lymphocytes % (Manual) 27 (20-40) % Atypical Lymphs % 0 % Monocytes % (Manual) 4 (2-10) % Eosinophils % (Manual) 0 L (0.7-5.8) % Basophils % (Manual) 1 (0.1-1.2) Platelet Estimate Adequate RBC Morph Comment Normal Sodium 139 (136-145) mEq/L Potassium 3.5 (3.5-5.1) mEq/L Chloride 103 (98-107) mEq/L Carbon Dioxide 22 (21-32) mEq/L Anion Gap 17.5 H (5-15) BUN 12 (7-18) mg/dL Creatinine 1.0 (0.55-1.02) mg/dL Est Cr Clr Drug Dosing 79.11 mL/min Estimated GFR (MDRD) > 60 (>60) mL/min BUN/Creatinine Ratio 12.0 L (14-18) Glucose 125 H (74-106) mg/dL Calcium 9.8 (8.5-10.1) mg/dL Magnesium 1.9 (1.8-2.4) mg/dl Total Bilirubin 1.1 H (0.2-1.0) mg/dL AST 163 H (15-37) U/L ALT 176 H (14-59) U/L Alkaline Phosphatase 103 (46-116) U/L Total Protein 8.2 (6.4-8.2) g/dl Albumin 4.7 (3.4-5.0) g/dl Globulin 3.5 gm/dL Albumin/Globulin Ratio 1.3 (1-2) TSH 3rd Generation 2.801 (0.358-3.74) uIU/mL Urine HCG, Qual (NEGATIVE) Urine Opiates Screen (NEGATIVE) Ur Buprenorphine Scrn (NEGATIVE) Ur Oxycodone Screen (NEGATIVE) Urine Methadone Screen (NEGATIVE) Ur Propoxyphene Screen (NEGATIVE) Ur Barbiturates Screen (NEGATIVE) Ur Tricyclics Screen (NEGATIVE) Ur Phencyclidine Scrn (NEGATIVE) Ur Amphetamine Screen (NEGATIVE) U Methamphetamines Scrn (NEGATIVE) U Benzodiazepines Scrn (NEGATIVE) U Cocaine Metab Screen (NEGATIVE) U Marijuana (THC) Screen (NEGATIVE) Ethyl Alcohol 0.00 (0.00) gm% HIV-1 Ab Rapid Screen Negative (NEGATIVE) 02/14/18 02/14/18 Range/Units 02:27 02:27 WBC (3.98-10.04) K/mm3 RBC (3.98-5.22) M/mm3 Hgb (11.2-15.7) gm/L Hct (34.1-44.9) % MCV (79.4-94.8) fl MCH (25.6-32.2) pg MCHC (32.2-35.5) g/dl RDW Std Deviation (36.4-46.3) fL Plt Count (182-369) K/mm3 MPV (9.4-12.3) fl Neutrophils % (Manual) (40-60) % Band Neutrophils % (0-10) % Lymphocytes % (Manual) (20-40) % Atypical Lymphs % % Monocytes % (Manual) (2-10) % Eosinophils % (Manual) (0.7-5.8) % Basophils % (Manual) (0.1-1.2) Platelet Estimate RBC Morph Comment Sodium (136-145) mEq/L Potassium (3.5-5.1) mEq/L Chloride (98-107) mEq/L Carbon Dioxide (21-32) mEq/L Anion Gap (5-15) BUN (7-18) mg/dL Creatinine (0.55-1.02) mg/dL Est Cr Clr Drug Dosing mL/min Estimated GFR (MDRD) (>60) mL/min BUN/Creatinine Ratio (14-18) Glucose (74-106) mg/dL Calcium (8.5-10.1) mg/dL Magnesium (1.8-2.4) mg/dl Total Bilirubin (0.2-1.0) mg/dL AST (15-37) U/L ALT (14-59) U/L Alkaline Phosphatase (46-116) U/L Total Protein (6.4-8.2) g/dl Albumin (3.4-5.0) g/dl Globulin gm/dL Albumin/Globulin Ratio (1-2) TSH 3rd Generation (0.358-3.74) uIU/mL Urine HCG, Qual Negative (NEGATIVE) Urine Opiates Screen Negative (NEGATIVE) Ur Buprenorphine Scrn Negative (NEGATIVE) Ur Oxycodone Screen Negative (NEGATIVE) Urine Methadone Screen Negative (NEGATIVE) Ur Propoxyphene Screen Negative (NEGATIVE) Ur Barbiturates Screen Negative (NEGATIVE) Ur Tricyclics Screen Negative (NEGATIVE) Ur Phencyclidine Scrn Negative (NEGATIVE) Ur Amphetamine Screen Presumptive positive H (NEGATIVE) U Methamphetamines Scrn Negative (NEGATIVE) U Benzodiazepines Scrn Negative (NEGATIVE) U Cocaine Metab Screen Negative (NEGATIVE) U Marijuana (THC) Screen Presumptive positive H (NEGATIVE) Ethyl Alcohol (0.00) gm% HIV-1 Ab Rapid Screen (NEGATIVE) Meds: Medications Generic Name Dose Route Start Last Admin Trade Name Freq PRN Reason Stop Dose Admin Sodium Chloride 1,000 mls @ 150 mls/hr 02/14/18 00:15 02/14/18 00:34 Normal Saline IV 150 mls/hr ASDIRECTED RAYSHAWN Administration Discontinued Medications Generic Name Dose Route Start Last Admin Trade Name Freq PRN Reason Stop Dose Admin Ampicillin Sodium/Sulbactam 100 mls @ 200 mls/hr 02/14/18 00:12 02/14/18 00: 41 Sodium 3 gm/ Sodium Chloride IV 02/14/18 00:41 200 mls/hr ONETIME ONE Administration Lorazepam 1 mg 02/14/18 00:15 02/14/18 00:33 Ativan IVPUSH 02/14/18 00:16 1 mg ONETIME STA Administration - Re-Assessments/Exams Free Text/Narrative Re-Assessment/Exam: 02/14/18 03:12 The patient's WBC count is elevated at 11.82, but with 0% bandemia. Her transaminases are elevated, possibly due to previously known hepatitis C. Her urine drug screen is positive for amphetamine and marijuana. Remainder of her workup is unremarkable. The patient received 3 g IV Unasyn and 1 mg IV Ativan to calm her down. She would now like to go home. I will discharge her with a prescription for Augmentin, to help cover anaerobes, however, the patient will need to follow-up in the clinic. I will refer her to Dr. Cannon. Departure - Departure Time of Disposition: 03:15 Disposition: Home, Self-Care 01 Condition: Fair Clinical Impression: IV drug abuse, Methamphetamine abuse, Infection of injection site - Discharge Information Prescriptions: Amoxicillin/Clavulanate K [Augmentin 875-125 MG] 1 tab PO Q12H #14 tablet Referrals: PCP,None [Primary Care Provider] - Courtney Cannon MD [Physician] - Forms: ED Department Discharge Additional Instructions: You were seen in the emergency room for possible infection of your left arm following IV methamphetamine injection. Workup in the ER included blood work, blood cultures, a urine drug screen, a urine test, and an ECG. You received IV antibiotics in the ER. You have been prescribed the antibiotic Augmentin. Take one tablet every 12 hours, as prescribed. It is very important that you follow-up with Dr. Courtney Cannon in the clinic this week, regarding your arm infection. We STRONGLY recommend that you follow-up at [facility] this week, regarding your methamphetamine use. If any other problems, please do not hesitate to return to the ER. - My Orders Last 24 Hours: My Active Orders 02/14/18 00:07 EKG Documentation Completion [RC] STAT 02/14/18 00:11 Blood Culture x2 Reflex Set [OM.PC] Stat 02/14/18 00:15 CULTURE BLOOD [BC] Stat Sodium Chloride 0.9% [Normal Saline] 1,000 ml IV ASDIRECTED 02/14/18 00:37 CULTURE BLOOD [BC] Stat 02/14/18 02:27 DRUG SCREEN, URINE [URCHEM] Stat HCG QUALITATIVE,URINE [URCHEM] Stat - Assessment/Plan Last 24 Hours: My Active Orders 02/14/18 00:07 EKG Documentation Completion [RC] STAT 02/14/18 00:11 Blood Culture x2 Reflex Set [OM.PC] Stat 02/14/18 00:15 CULTURE BLOOD [BC] Stat Sodium Chloride 0.9% [Normal Saline] 1,000 ml IV ASDIRECTED 02/14/18 00:37 CULTURE BLOOD [BC] Stat 02/14/18 02:27 DRUG SCREEN, URINE [URCHEM] Stat HCG QUALITATIVE,URINE [URCHEM] Stat
== END 2018-02-14 03:39 | disposition home or self-care (01) ==
LOC: JD.ED 23:34
DX: T80.29XA Infection following other infusion, transfusion and therapeutic injection, initial encounter (principal); F15.10 Other stimulant abuse, uncomplicated; F17.210 Nicotine dependence, cigarettes, uncomplicated; Z79.899 Other long term (current) drug therapy
CPT/HCPCS: 36415; 80053; 80306; 81025; 83735; 84443; 85025; 87040; 93005; 96361; 96365; 96375; 99284; G0433; G0480; J0295; J2060; J7030; J7040; 93010

== ENCOUNTER 2018-02-14 05:39 | Emergency (ER) | payer MEDICAID | END 2018-02-14 05:53 | disposition left against medical advice (07) | LOC: JD.ED 05:39 | DX: Z53.21 Procedure and treatment not carried out due to patient leaving prior to being seen by health care provider (principal) ==

== ENCOUNTER 2018-02-14 06:56 | Emergency (ER) | payer MEDICAID ==
[2018-02-14] MEDS ORDERED: Haloperidol Lactate 5 MG/ML SDV IM ONE (07:10)
[2018-02-14] MEDS ORDERED: LORazepam 2 MG/ML SDV IM ONE (07:10)
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
[2018-02-14] MEDS ORDERED: Dextrose 5%-0.9% NaCl 1,000 ML IV SCH (07:45)
[2018-02-14] MEDS ORDERED: Vancomycin 1.5 GM in Sodium Chloride 0.9% 500 ML IV ONE (08:04)
[2018-02-14 10:05] VITALS: BP 101/52
[2018-02-14] MEDS: LORazepam 2 MG/ML SDV IVPUSH ONE ×2 (10:45→12:35)
[2018-02-14] MEDS ORDERED: Haloperidol Lactate 5 MG/ML SDV IVPUSH ONE (12:32)
[2018-02-14] MEDS ORDERED: Haloperidol Lactate 5 MG/ML SDV ONE (12:34)
== END 2018-02-14 16:52 ==
LOC: JD.ED 06:56
DX: L03.114 Cellulitis of left upper limb (principal); F15.10 Other stimulant abuse, uncomplicated; F23 Brief psychotic disorder; Z79.899 Other long term (current) drug therapy; Z86.19 Personal history of other infectious and parasitic diseases; F17.210 Nicotine dependence, cigarettes, uncomplicated
CPT/HCPCS: 36415; 86140; 96361; 96365; 96366; 96372; 96375; 99285; G0433; G0480; J1630; J2060; J3370; J7040; J7042

== ENCOUNTER 2018-03-14 20:08 | Emergency (ER) | payer MEDICAID ==
[2018-03-14 20:20] VITALS: BP 121/86
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
== END 2018-03-14 21:40 | disposition home or self-care (01) ==
LOC: JD.ED 20:08
DX: F15.10 Other stimulant abuse, uncomplicated (principal); R00.0 Tachycardia, unspecified; F17.210 Nicotine dependence, cigarettes, uncomplicated; Z79.899 Other long term (current) drug therapy
CPT/HCPCS: 99285

== ENCOUNTER 2018-03-16 11:57 | Emergency (ER) | payer MEDICAID ==
[2018-03-16 12:07] VITALS: BP 103/55
--- NOTE | 2018-03-16 13:18 | EDM.PDOC ---
ED HPI GENERAL MEDICAL PROBLEM - General Chief Complaint: Cardiovascular Problem Stated Complaint: RAPID HEART RATE Time Seen by Provider: 03/16/18 12:38 Source of Information: Reports: Patient, Old Records (recent ER visit) History Limitations: Reports: No Limitations - History of Present Illness INITIAL COMMENTS - FREE TEXT/NARRATIVE: 27-year-old female presents for evaluation and treatment of chest discomfort, palpitations and ventricular tachycardia. Patient was seen in the ER just 2 days ago. At that time she had just useed methamphetamine and was slightly tachycardic in the low one teens. She reports that her symptoms had resolved. She went to the [facility] as she was instructed to do. Sounds as if the symptoms resolved and started again today. She is currently complaining of chest discomfort, fluttering feeling in her chest and tachycardia. She also reports that she is short of breath. Identifies pain to the substernal area. She states she has been feeling lightheaded. No syncope. No pain or swelling in her legs. No diaphoresis, nausea or vomiting. Patient reports that she does periodically use methamphetamine, she normally injects this. She has not used this since being seen in the ER a few days Ago. 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 History: pt states has two children Musculoskeletal History: Reports: Fracture Psychiatric History: Reports: Addiction, Anxiety, Depression - Infectious Disease History Infectious Disease History: Reports: Hepatitis C - Past Surgical History Musculoskeletal Surgical History: Reports: ORIF Social & Family History - Family History Family Medical History: Noncontributory - Tobacco Use Smoking Status *Q: Current Every Day Smoker Years of Tobacco use: 15 Packs/Tins Daily: 1 - Caffeine Use Caffeine Use: Reports: Coffee, Soda Other Caffeine Use: unknown - Recreational Drug Use Recreational Drug Use: Yes Drug Use in Last 12 Months: Yes Recreational Drug Type: Reports: Methamphetamine - Living Situation & Occupation Living situation: Reports: Single, Alone Occupation: Employed ([employer]) ED ROS GENERAL - Review of Systems Review Of Systems: See Below Constitutional: Reports: Fatigue Respiratory: Reports: Shortness of Breath Cardiovascular: Reports: Chest Pain, Lightheadedness, Palpitations GI/Abdominal: Denies: Nausea, Vomiting Neurological: Denies: Syncope ED EXAM, GENERAL - Physical Exam Exam: See Below Exam Limited By: No Limitations General Appearance: Alert, WD/WN, No Apparent Distress, Thin Ears: Normal External Exam Nose: Normal Inspection Throat/Mouth: Normal Inspection, Normal Lips, Normal Voice, No Airway Compromise Respiratory/Chest: No Respiratory Distress, Lungs Clear, Normal Breath Sounds, Other (tenderness to palpation to the left anterior chest intercostal space 3-4) Cardiovascular: Normal Peripheral Pulses, Regular Rate, Rhythm, No Murmur Peripheral Pulses: 2+: Radial (L), Radial (R) GI/Abdominal: Soft, Non-Tender Neurological: Alert, Oriented, Normal Cognition Psychiatric: Normal Affect, Normal Mood Skin Exam: Warm, Dry, Normal Color EKG INTERPRETATION EKG Date: 03/16/18 Time: 12:40 Rhythm: NSR Rate (Beats/Min): 60 [place]: Normal P-Wave: Present QRS: Normal ST-T: Normal QT: Normal EKG Interpretation Comments: NSR at 60 bpm. No acute changes. Reviewed by myself and Dr. Mcgrath. Course - Vital Signs Last Recorded V/S: Last Vital Signs Temp 36.8 C 03/16/18 12:05 Pulse 60 03/16/18 12:05 Resp 16 03/16/18 12:05 BP 103/55 L 03/16/18 12:05 Pulse Ox 97 03/16/18 12:05 - Orders/Labs/Meds Orders: Active Orders 24 hr Category Date Time Status Cardiac Monitoring [RC] . DIRECTED Care 03/16/18 12:20 Active EKG Documentation Completion [RC] ASDIRECTED Care 03/16/18 12:21 Active DRUG SCREEN, URINE [URCHEM] Stat Lab 03/16/18 12:42 Ordered EKG 12 Lead [EK] Stat Ther 03/16/18 12:20 Ordered Labs: Laboratory Tests 03/16/18 03/16/18 03/16/18 Range/Units 12:30 12:30 12:30 WBC 6.88 (3.98-10.04) K/mm3 RBC 4.45 (3.98-5.22) M/mm3 Hgb 13.9 (11.2-15.7) gm/L Hct 41.6 (34.1-44.9) % MCV 93.5 (79.4-94.8) fl MCH 31.2 (25.6-32.2) pg MCHC 33.4 (32.2-35.5) g/dl RDW Std Deviation 42.9 (36.4-46.3) fL Plt Count 146 L (182-369) K/mm3 MPV 11.0 (9.4-12.3) fl Neut % (Auto) 67.2 (34.0-71.1) % Lymph % (Auto) 23.7 (19.3-51.7) % [place] % (Auto) 7.3 (4.7-12.5) % Eos % (Auto) 1.3 (0.7-5.8) Baso % (Auto) 0.4 (0.1-1.2) % Neut # (Auto) 4.62 (1.56-6.13) K/mm3 Lymph # (Auto) 1.63 (1.18-3.74) K/mm3 [place] # (Auto) 0.50 H (0.24-0.36) K/mm3 Eos # (Auto) 0.09 (0.04-0.36) K/mm3 Baso # (Auto) 0.03 (0.01-0.08) K/mm3 D-Dimer, Quantitative (0.19-0.50) mg/L Sodium 139 (136-145) mEq/L Potassium 4.3 (3.5-5.1) mEq/L Chloride 106 (98-107) mEq/L Carbon Dioxide 24 (21-32) mEq/L Anion Gap 13.3 (5-15) BUN 18 (7-18) mg/dL Creatinine 0.9 (0.55-1.02) mg/dL Est Cr Clr Drug Dosing 87.90 mL/min Estimated GFR (MDRD) > 60 (>60) mL/min BUN/Creatinine Ratio 20.0 H (14-18) Glucose 102 (74-106) mg/dL Calcium 8.7 (8.5-10.1) mg/dL Total Bilirubin 1.0 (0.2-1.0) mg/dL AST 93 H (15-37) U/L ALT 120 H (14-59) U/L Alkaline Phosphatase 70 (46-116) U/L C-Reactive Protein < 0.2 (<1.0) mg/dL Total Protein 7.3 (6.4-8.2) g/dl Albumin 4.0 (3.4-5.0) g/dl Globulin 3.3 gm/dL Albumin/Globulin Ratio 1.2 (1-2) TSH 3rd Generation 0.917 (0.358-3.74) uIU/mL HCG, Qual Negative (NEGATIVE) 03/16/18 Range/Units 12:30 WBC (3.98-10.04) K/mm3 RBC (3.98-5.22) M/mm3 Hgb (11.2-15.7) gm/L Hct (34.1-44.9) % MCV (79.4-94.8) fl MCH (25.6-32.2) pg MCHC (32.2-35.5) g/dl RDW Std Deviation (36.4-46.3) fL Plt Count (182-369) K/mm3 MPV (9.4-12.3) fl Neut % (Auto) (34.0-71.1) % Lymph % (Auto) (19.3-51.7) % [place] % (Auto) (4.7-12.5) % Eos % (Auto) (0.7-5.8) Baso % (Auto) (0.1-1.2) % Neut # (Auto) (1.56-6.13) K/mm3 Lymph # (Auto) (1.18-3.74) K/mm3 [place] # (Auto) (0.24-0.36) K/mm3 Eos # (Auto) (0.04-0.36) K/mm3 Baso # (Auto) (0.01-0.08) K/mm3 D-Dimer, Quantitative < 0.19 L (0.19-0.50) mg/L Sodium (136-145) mEq/L Potassium (3.5-5.1) mEq/L Chloride (98-107) mEq/L Carbon Dioxide (21-32) mEq/L Anion Gap (5-15) BUN (7-18) mg/dL Creatinine (0.55-1.02) mg/dL Est Cr Clr Drug Dosing mL/min Estimated GFR (MDRD) (>60) mL/min BUN/Creatinine Ratio (14-18) Glucose (74-106) mg/dL Calcium (8.5-10.1) mg/dL Total Bilirubin (0.2-1.0) mg/dL AST (15-37) U/L ALT (14-59) U/L Alkaline Phosphatase (46-116) U/L C-Reactive Protein (<1.0) mg/dL Total Protein (6.4-8.2) g/dl Albumin (3.4-5.0) g/dl Globulin gm/dL Albumin/Globulin Ratio (1-2) TSH 3rd Generation (0.358-3.74) uIU/mL HCG, Qual (NEGATIVE) - Radiology Interpretation Free Text/Narrative:: Chest: Portable view of the chest was obtained. Comparison: Prior chest x-ray of 03/14/17. Heart size and mediastinum are normal. Lungs are clear. Bony structures are unremarkable. Impression: 1. Nothing acute is seen on portable chest x-ray. - Re-Assessments/Exams Free Text/Narrative Re-Assessment/Exam: 03/16/18 13:25 I reviewed the chest x-ray, EKG and labs with the patient. At this time she is anxious to go home as she has to go to work at 1400. I will discharge her home. Recommend follow-up with her primary care provider. May want to discuss a Holter monitor if she continues to have these symptoms. likely anxiety causing her palpitations. I do feel the chest discomfort is chest wall in origin she was tender when I palpated her chest earlier. Discharge instructions as documented. Departure - Departure Time of Disposition: 13:26 Disposition: Home, Self-Care 01 Condition: Fair Clinical Impression: Chest wall pain Instructions: Chest Wall Pain, [id number] Referrals: Lashae Reynolds, MENTAL HEALTH NURSE [Primary Care Provider] - Forms: ED Department Discharge Additional Instructions: Recommend follow-up with your primary care provider within 2 weeks for recheck of your symptoms. You may want to discuss with her a Holter monitor to further evaluate your feelings of tachycardia. In the meantime you may take Tylenol or Motrin as needed for the discomfort. Also recommend using heat to the sore area. Rest. make sure you are drinking plenty of fluids. Please return to the ER if your symptoms change or worsen. - My Orders Last 24 Hours: My Active Orders 03/16/18 12:20 Cardiac Monitoring [RC] . DIRECTED EKG 12 Lead [EK] Stat 03/16/18 12:21 EKG Documentation Completion [RC] ASDIRECTED 03/16/18 12:42 DRUG SCREEN, URINE [URCHEM] Stat - Assessment/Plan Last 24 Hours: My Active Orders 03/16/18 12:20 Cardiac Monitoring [RC] . DIRECTED EKG 12 Lead [EK] Stat 03/16/18 12:21 EKG Documentation Completion [RC] ASDIRECTED 03/16/18 12:42 DRUG SCREEN, URINE [URCHEM] Stat
--- NOTE | 2018-03-16 13:21 | CR ---
Chest: Portable view of the chest was obtained. Comparison: Prior chest x-ray of 03/14/17. Heart size and mediastinum are normal. Lungs are clear. Bony structures are unremarkable. Impression: 1. Nothing acute is seen on portable chest x-ray. Diagnostic code #1
== END 2018-03-16 13:33 | disposition home or self-care (01) ==
LOC: JD.ED 11:57
DX: R07.89 Other chest pain (principal); F17.210 Nicotine dependence, cigarettes, uncomplicated; Z79.899 Other long term (current) drug therapy
CPT/HCPCS: 36415; 71045; 71045-26; 80053; 84443; 84703; 85025; 85379; 86140; 93005; 93010; 99283; 99285-25

== ENCOUNTER 2018-04-02 00:40 | Emergency (ER) | payer MEDICAID ==
[2018-04-02 00:54] VITALS: BP 148/89
== END 2018-04-02 02:07 | disposition left against medical advice (07) ==
LOC: JD.ED 00:40
DX: Z53.21 Procedure and treatment not carried out due to patient leaving prior to being seen by health care provider (principal)

== ENCOUNTER 2018-05-06 02:06 | Emergency (ER) | payer MEDICAID ==
[2018-05-06] MEDS ORDERED: Ketorolac 30 MG/ML SDV IVPUSH ONE (02:46)
[2018-05-06] MEDS ORDERED: Ketorolac 30 MG/ML SDV IM ONE (03:12)
[2018-05-06] MEDS ORDERED: Potassium Chloride 10% 20 MEQ/15 ML Soln 30 ML UD Cup PO ONE (03:28)
[2018-05-06] MEDS ORDERED: Sodium Chloride 0.9% with KCl 1,000 ML IV SCH (03:30)
[2018-05-06] MEDS ORDERED: Sodium Chloride 0.9% 1,000 ML IV SCH (04:00)
[2018-05-06] MEDS: Potassium Chloride 10 MEQ in Premix Bag 1 BAG IV SCH ×3 (04:04→06:25)
[2018-05-06] MEDS ORDERED: Potassium Chloride 10% 20 MEQ/15 ML Soln 15 ML UD Cup PO ONE (04:05)
--- NOTE | 2018-05-06 06:09 | EDM.PDOC ---
ED HPI GENERAL MEDICAL PROBLEM - General Chief Complaint: Cardiovascular Problem Stated Complaint: CHEST PAIN Time Seen by Provider: 05/06/18 02:24 Source of Information: Reports: Patient History Limitations: Reports: No Limitations - History of Present Illness INITIAL COMMENTS - FREE TEXT/NARRATIVE: Patient is a 27-year-old who states that her heart is racing. She states that her heart is beating very fast and she thinks she is having a heart attack. Patient states she has nausea but no vomiting no diaphoresis, patient complains of chest discomfort, no shortness of breath no abdominal pain no nausea no diarrhea or constipation. No new joint pains or rashes. The patient does complain of numbness and tingling of her arms and legs. Onset: Today, Sudden Duration: Hour(s):, Getting Worse Location: Reports: Upper Extremity, Left, Upper Extremity, Right, Lower Extremity, Left, Generalized Quality: Reports: Other Severity: Moderate (Tingling and numbness of her extremities) Improves with: Reports: None Worsens with: Reports: None Associated Symptoms: Reports: Chest Pain. Denies: Diaphoresis, Fever/Chills, Headaches, Loss of Appetite, Nausea/Vomiting, Rash, Seizure, Shortness of Breath , Syncope, Weakness Chest Pain Score (Numeric/FACES): 5 - Related Data Allergies Allergy/AdvReac Type Severity Reaction Status Date / Time No Known Allergies Allergy Verified 05/06/18 02:09 Home Meds: Home Meds Venlafaxine [Effexor] 37.5 mg PO DAILY 10/09/17 [History] traZODone 50 mg PO DAILY 10/09/17 [History] risperiDONE [Risperdal] 2 mg PO BEDTIME 10/18/17 [History] Past Medical History - Past Health History Medical/Surgical History: Denies Medical/Surgical History HEENT History: Reports: Impaired Vision 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 Musculoskeletal History: Reports: Fracture Psychiatric History: Reports: Addiction, Anxiety, Depression - Infectious Disease History Infectious Disease History: Reports: Hepatitis C - Past Surgical History Musculoskeletal Surgical History: Reports: ORIF Social & Family History - Family History Family Medical History: Noncontributory - Tobacco Use Smoking Status *Q: Current Every Day Smoker Years of Tobacco use: 10 Packs/Tins Daily: 1 - Caffeine Use Caffeine Use: Reports: Coffee, Energy Drinks Other Caffeine Use: unknown - Recreational Drug Use Recreational Drug Use: Yes Drug Use in Last 12 Months: Yes Recreational Drug Type: Reports: Marijuana/Hashish, Methamphetamine Other Recreational Drug Type: Pt states has not used meth since end of February, pt was seen in ED on 04/02 with pt stating she had just used. Recreational Drug Use Frequency: Daily - Living Situation & Occupation Living situation: Reports: Single, Alone Occupation: Employed ([employer]) ED ROS GENERAL - Review of Systems Review Of Systems: See Below Constitutional: Reports: No Symptoms HEENT: Reports: No Symptoms Respiratory: Reports: No Symptoms Cardiovascular: Reports: Palpitations Endocrine: Reports: No Symptoms GI/Abdominal: Reports: No Symptoms : Reports: No Symptoms Musculoskeletal: Reports: No Symptoms, Muscle Stiffness (N legs). Denies: Neck Pain, Shoulder Pain, Arm Pain, Back Pain Skin: Reports: No Symptoms Neurological: Reports: Numbness (Both arms), Paresthesia, Tingling Psychiatric: Reports: No Symptoms Hematologic/Lymphatic: Reports: No Symptoms Immunologic: Reports: No Symptoms ED EXAM, GENERAL - Physical Exam Exam: See Below Exam Limited By: No Limitations General Appearance: Anxious Ears: Normal External Exam, Hearing Grossly Normal, Normal TMs Nose: Normal Inspection, Normal Mucosa, No Blood Throat/Mouth: Normal Inspection, Normal Lips, Normal Gums, Normal Oropharynx, Normal Voice, No Airway Compromise Head: Atraumatic, Normocephalic Neck: Normal Inspection, Supple, Non-Tender, Full Range of Motion Respiratory/Chest: No Respiratory Distress, Lungs Clear, Normal Breath Sounds, No Accessory Muscle Use, Chest Non-Tender Cardiovascular: Normal Peripheral Pulses, No Edema, No Murmur, No Rub, Tachycardia Peripheral Pulses: 4+: Radial (L), Radial (R) GI/Abdominal: Normal Bowel Sounds, Soft, Non-Tender, No Organomegaly, No Abnormal Bruit Back Exam: Normal Inspection, Full Range of Motion, NT Extremities: Normal Inspection, Normal Range of Motion, Non-Tender, Normal Capillary Refill, No Pedal Edema Neurological: Alert, Oriented, CN II-XII Intact, Normal Cognition, Normal Gait, No Motor/Sensory Deficits Psychiatric: Anxious Skin Exam: Warm, Dry, Intact, Normal Color, No Rash Lymphatic: No Adenopathy Course - Vital Signs Last Recorded V/S: Last Vital Signs Temp 98.4 F 07/19/18 02:10 Pulse 102 H 05/06/18 02:10 Resp 22 H 05/06/18 02:10 BP 143/96 H 05/06/18 02:10 Pulse Ox 100 05/06/18 02:10 - Orders/Labs/Meds Orders: Active Orders 24 hr Category Date Time Status EKG Documentation Completion [RC] ASDIRECTED Care 05/06/18 02:29 Active DRUG SCREEN, URINE [URCHEM] Stat Lab 05/06/18 03:08 Ordered Potassium Chloride [KCl 10 MEQ in Water 100 ML] 10 meq Med 05/06/18 04:00 Active Premix Bag 1 bag IV ASDIRECTED Sodium Chloride 0.9% [Normal Saline] 1,000 ml Med 05/06/18 04:00 Active IV ASDIRECTED EKG 12 Lead [EK] Stat Ther 05/06/18 02:29 Ordered Medication Orders Potassium Chloride 10 meq/ (Premix) 0 mls @ 100 mls/hr IV ASDIRECTED RAYSHAWN Stop: 05/08/18 04:01 Last Admin: 05/06/18 05:15 Dose: 100 mls/hr Admin: 05/06/18 04:04 Dose: 100 mls/hr Sodium Chloride (Normal Saline) 1,000 mls @ 150 mls/hr IV ASDIRECTED RAYSHAWN Last Admin: 05/06/18 04:04 Dose: 150 mls/hr Labs: Laboratory Tests 05/06/18 05/06/18 05/06/18 Range/Units 02:40 02:40 03:08 WBC 6.52 (3.98-10.04) K/mm3 RBC 4.66 (3.98-5.22) M/mm3 Hgb 14.6 (11.2-15.7) gm/L Hct 43.1 (34.1-44.9) % MCV 92.5 (79.4-94.8) fl MCH 31.3 (25.6-32.2) pg MCHC 33.9 (32.2-35.5) g/dl RDW Std Deviation 42.5 (36.4-46.3) fL Plt Count 147 L (182-369) K/mm3 MPV 12.0 (9.4-12.3) fl Neut % (Auto) 44.3 (34.0-71.1) % Lymph % (Auto) 47.7 (19.3-51.7) % [place] % (Auto) 5.8 (4.7-12.5) % Eos % (Auto) 1.7 (0.7-5.8) Baso % (Auto) 0.3 (0.1-1.2) % Neut # (Auto) 2.89 (1.56-6.13) K/mm3 Lymph # (Auto) 3.11 (1.18-3.74) K/mm3 [place] # (Auto) 0.38 H (0.24-0.36) K/mm3 Eos # (Auto) 0.11 (0.04-0.36) K/mm3 Baso # (Auto) 0.02 (0.01-0.08) K/mm3 Sodium 138 (136-145) mEq/L Potassium 2.8 L (3.5-5.1) mEq/L Chloride 103 (98-107) mEq/L Carbon Dioxide 24 (21-32) mEq/L Anion Gap 13.8 (5-15) BUN 5 L (7-18) mg/dL Creatinine 1.1 H (0.55-1.02) mg/dL Est Cr Clr Drug Dosing 71.92 mL/min Estimated GFR (MDRD) 60 (>60) mL/min BUN/Creatinine Ratio 4.5 L (14-18) Glucose 134 H (74-106) mg/dL Calcium 8.7 (8.5-10.1) mg/dL Urine Opiates Screen Negative (NEGATIVE) Ur Buprenorphine Scrn Negative (NEGATIVE) Ur Oxycodone Screen Negative (NEGATIVE) Urine Methadone Screen Negative (NEGATIVE) Ur Propoxyphene Screen Negative (NEGATIVE) Ur Barbiturates Screen Negative (NEGATIVE) Ur Tricyclics Screen Negative (NEGATIVE) Ur Phencyclidine Scrn Negative (NEGATIVE) Ur Amphetamine Screen Negative (NEGATIVE) U Methamphetamines Scrn Negative (NEGATIVE) U Benzodiazepines Scrn Negative (NEGATIVE) U Cocaine Metab Screen Negative (NEGATIVE) U Marijuana (THC) Screen Presumptive positive H (NEGATIVE) Meds: Medications Generic Name Dose Route Start Last Admin Trade Name Freq PRN Reason Stop Dose Admin Potassium Chloride 10 meq/ 0 mls @ 100 mls/hr 05/06/18 04:00 05/06/18 06:25 Premix IV 05/08/18 04:01 100 mls/hr ASDIRECTED RAYSHAWN Administration Sodium Chloride 1,000 mls @ 150 mls/hr 05/06/18 04:00 05/06/18 04:04 Normal Saline IV 150 mls/hr ASDIRECTED RAYSHAWN Administration Discontinued Medications Generic Name Dose Route Start Last Admin Trade Name Giulianoq PRN Reason Stop Dose Admin Potassium Chloride/Sodium Chloride 1,000 mls @ 150 mls/hr 05/06/18 03:30 Normal Saline With 40 Meq Kcl IV ASDIRECTED RAYSHAWN Ketorolac Tromethamine 30 mg 05/06/18 02:46 Toradol IVPUSH 05/06/18 02:47 ONETIME ONE Ketorolac Tromethamine 30 mg 05/06/18 03:12 05/06/18 03:21 Toradol IM 05/06/18 03:13 30 mg ONETIME ONE Administration Potassium Chloride 40 meq 05/06/18 03:28 Potassium Chloride PO 05/06/18 03:29 ONETIME ONE Potassium Chloride 40 meq 05/06/18 04:05 05/06/18 04:06 Potassium Chloride Solution PO 05/06/18 04:06 40 meq ONETIME ONE Administration Departure - Departure Time of Disposition: 07:00 Disposition: Home, Self-Care 01 Condition: Good Clinical Impression: Hypokalemia Instructions: Palpitations, [id number], Hypokalemia Forms: ED Department Discharge Additional Instructions: follow up with [facility].[phone]. - My Orders Last 24 Hours: My Active Orders 05/06/18 02:29 EKG Documentation Completion [RC] ASDIRECTED EKG 12 Lead [EK] Stat 05/06/18 03:08 DRUG SCREEN, URINE [URCHEM] Stat 05/06/18 04:00 Potassium Chloride [KCl 10 MEQ in Water 100 ML] 10 meq Premix Bag 1 bag IV ASDIRECTED Sodium Chloride 0.9% [Normal Saline] 1,000 ml IV ASDIRECTED - Assessment/Plan Last 24 Hours: My Active Orders 05/06/18 02:29 EKG Documentation Completion [RC] ASDIRECTED EKG 12 Lead [EK] Stat 05/06/18 03:08 DRUG SCREEN, URINE [URCHEM] Stat 05/06/18 04:00 Potassium Chloride [KCl 10 MEQ in Water 100 ML] 10 meq Premix Bag 1 bag IV ASDIRECTED Sodium Chloride 0.9% [Normal Saline] 1,000 ml IV ASDIRECTED
--- NOTE | 2018-05-06 06:51 | CR ---
Chest: Two views of the chest were obtained. Comparison: Prior chest x-ray of 03/16/18. Heart size and mediastinum are normal. Lungs are clear. Bony structures are unremarkable for patient's age. On the lateral view plate and screws are noted within one of the humeri. Impression: 1. Nothing acute is seen on two-view chest x-ray. Diagnostic code #1
[2018-05-06 07:53] VITALS: BP 121/73
== END 2018-05-06 07:42 | disposition home or self-care (01) ==
LOC: JD.ED 02:06
DX: E87.6 Hypokalemia (principal); F17.210 Nicotine dependence, cigarettes, uncomplicated; F41.9 Anxiety disorder, unspecified; F32.9 Major depressive disorder, single episode, unspecified; Z79.899 Other long term (current) drug therapy
CPT/HCPCS: 36415; 71046; 80048; 80306; 85025; 93005; 96365; 96366; 96372; 99285; A9270; J1885; J3480; J7040

== ENCOUNTER 2018-05-07 00:15 | Emergency (ER) | payer MEDICAID ==
[2018-05-07 00:26] VITALS: BP 135/86
[2018-05-07] MEDS ORDERED: Acetaminophen 325 MG Tab PO ONE (00:30)
--- NOTE | 2018-05-07 00:40 | EDM.PDOC ---
ED HPI GENERAL MEDICAL PROBLEM - General Chief Complaint: Cardiovascular Problem Stated Complaint: RHB Time Seen by Provider: 05/07/18 00:19 Source of Information: Reports: Patient History Limitations: Reports: No Limitations - History of Present Illness INITIAL COMMENTS - FREE TEXT/NARRATIVE: Teja is a 27-year-old female presents emergency department complaining of chest pain and palpitations. She was seen by me on last night for similar symptoms. She had episodes of feeling like her heart was racing and pounding. Last night she was found to have a low potassium at 2.8 and everything else and her workup was essentially unremarkable. Chest x-ray was normal drug screen was positive for marijuana but her CBC and the rest of her electrolytes were within acceptable limits. Tonight she says that her charts I re-seen again but now feels back to normal. Patient is a smoking marijuana on yesterday. She denies any other symptoms like nausea vomiting sweating no headache no shortness of breath no abdominal pain no diarrhea no new rashes edges or joint pains Onset: Sudden Duration: Minutes:, Resolved Prior to Arrival Location: Reports: Chest Quality: Reports: Ache Severity: Moderate Improves with: Reports: None Worsens with: Reports: None Context: Reports: Other (CHPI) Associated Symptoms: Reports: Chest Pain. 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: pt states has two children Musculoskeletal History: Reports: Fracture Psychiatric History: Reports: Addiction, Anxiety, Depression - Infectious Disease History Infectious Disease History: Reports: Hepatitis C - Past Surgical History Musculoskeletal Surgical History: Reports: ORIF Social & Family History - Family History Family Medical History: Noncontributory - Tobacco Use Smoking Status *Q: Current Every Day Smoker Years of Tobacco use: 12 Packs/Tins Daily: 1 - Caffeine Use Caffeine Use: Reports: Coffee, Energy Drinks Other Caffeine Use: unknown - Recreational Drug Use Recreational Drug Use: Yes Drug Use in Last 12 Months: Yes Recreational Drug Type: Reports: Marijuana/Hashish, Methamphetamine - Living Situation & Occupation Living situation: Reports: Single, Alone Occupation: Employed ([employer]) ED ROS GENERAL - Review of Systems Review Of Systems: See Below Constitutional: Reports: No Symptoms HEENT: Reports: No Symptoms Respiratory: Reports: No Symptoms Cardiovascular: Reports: Chest Pain, Palpitations Endocrine: Reports: No Symptoms GI/Abdominal: Reports: No Symptoms : Reports: No Symptoms Musculoskeletal: Reports: No Symptoms Skin: Reports: No Symptoms Neurological: Reports: No Symptoms Psychiatric: Reports: Anxiety Hematologic/Lymphatic: Reports: No Symptoms Immunologic: Reports: No Symptoms ED EXAM, GENERAL - Physical Exam Exam: See Below Exam Limited By: No Limitations General Appearance: Alert, WD/WN, No Apparent Distress, Anxious Ears: Normal External Exam, Hearing Grossly Normal Nose: Normal Inspection, Normal Mucosa, No Blood Throat/Mouth: Normal Inspection, Normal Lips, Normal Teeth, Normal Gums, Normal Oropharynx, Normal Voice, No Airway Compromise Head: Atraumatic, Normocephalic Neck: Normal Inspection, Supple, Non-Tender, Full Range of Motion Respiratory/Chest: No Respiratory Distress, Lungs Clear, Normal Breath Sounds, No Accessory Muscle Use, Chest Non-Tender Cardiovascular: Normal Peripheral Pulses, Regular Rate, Rhythm, No Edema, No Gallop, No JVD, No Murmur, No Rub GI/Abdominal: Normal Bowel Sounds, Soft, Non-Tender, No Organomegaly, No Distention, No Abnormal Bruit, No Mass Back Exam: Normal Inspection, Full Range of Motion, NT Extremities: Normal Inspection, Normal Range of Motion, Non-Tender, Normal Capillary Refill, No Pedal Edema Neurological: Alert, Oriented, CN II-XII Intact, Normal Cognition, Normal Gait Psychiatric: Anxious Skin Exam: Warm, Dry, Intact, Normal Color, No Rash EKG INTERPRETATION EKG Date: 05/07/18 Time: 00:40 Rhythm: NSR Rate (Beats/Min): 74 [place]: Normal P-Wave: Present QRS: Normal ST-T: Normal QT: Normal Comparison: No Change Course - Vital Signs Last Recorded V/S: Last Vital Signs Temp 100.0 F 05/07/18 00:23 Pulse 78 05/07/18 00:23 Resp 16 05/07/18 00:23 BP 135/86 05/07/18 00:23 Pulse Ox 100 05/07/18 00:23 - Orders/Labs/Meds Orders: Active Orders 24 hr Category Date Time Status EKG Documentation Completion [RC] ASDIRECTED Care 05/07/18 00:21 Active DRUG SCREEN, URINE [URCHEM] Stat Lab 05/07/18 00:51 Ordered EKG 12 Lead [EK] Stat Ther 05/07/18 00:21 Ordered Labs: Laboratory Tests 05/07/18 05/07/18 05/07/18 Range/Units 00:35 00:35 00:35 D-Dimer, Quantitative < 0.19 L (0.19-0.50) mg/L Sodium 140 (136-145) mEq/L Potassium 3.5 (3.5-5.1) mEq/L Chloride 105 (98-107) mEq/L Carbon Dioxide 24 (21-32) mEq/L Anion Gap 14.5 (5-15) BUN 8 (7-18) mg/dL Creatinine 1.0 (0.55-1.02) mg/dL Est Cr Clr Drug Dosing 79.11 mL/min Estimated GFR (MDRD) > 60 (>60) mL/min BUN/Creatinine Ratio 8.0 L (14-18) Glucose 140 H (74-106) mg/dL Calcium 8.6 (8.5-10.1) mg/dL Magnesium 1.7 L (1.8-2.4) mg/dl Meds: Medications Discontinued Medications Generic Name Dose Route Start Last Admin Trade Name Freq PRN Reason Stop Dose Admin Acetaminophen 975 mg 05/07/18 00:30 05/07/18 01:01 Tylenol PO 05/07/18 00:31 975 mg NOW ONE Administration Departure - Departure Disposition: [facility] Condition: Good Clinical Impression: Chest wall pain, Anxiety Instructions: Chest Wall Pain, Palpitations, [id number] Referrals: Tracy Luo NP [Ordering Only Provider] - 2 Days Forms: ED Department Discharge Additional Instructions: You are being referred to Aditi Luo NP At [facility] [address] [place] [address] Phone number [phone] Please see her for follow-up with the anxiety and substance use issues. - My Orders Last 24 Hours: My Active Orders 05/07/18 00:21 EKG Documentation Completion [RC] ASDIRECTED EKG 12 Lead [EK] Stat 05/07/18 00:51 DRUG SCREEN, URINE [URCHEM] Stat - Assessment/Plan Last 24 Hours: My Active Orders 05/07/18 00:21 EKG Documentation Completion [RC] ASDIRECTED EKG 12 Lead [EK] Stat 05/07/18 00:51 DRUG SCREEN, URINE [URCHEM] Stat
== END 2018-05-07 01:25 | disposition home or self-care (01) ==
LOC: JD.ED 00:15
DX: R07.89 Other chest pain (principal); F41.9 Anxiety disorder, unspecified; F32.9 Major depressive disorder, single episode, unspecified; F17.210 Nicotine dependence, cigarettes, uncomplicated; Z79.899 Other long term (current) drug therapy
CPT/HCPCS: 36415; 80048; 83735; 85379; 93005; 99285; A9270

== ENCOUNTER 2018-06-16 00:47 | Emergency (ER) | payer MEDICAID ==
[2018-06-16 00:56] VITALS: BP 133/82
== END 2018-06-16 01:45 ==
LOC: JD.ED 00:47
DX: Z53.21 Procedure and treatment not carried out due to patient leaving prior to being seen by health care provider (principal)

== ENCOUNTER 2018-06-26 13:34 | Emergency (ER) | payer MEDICAID ==
[2018-06-26 13:51] VITALS: BP 125/73
--- NOTE | 2018-06-26 15:07 | EDM.PDOC ---
ED HPI GENERAL MEDICAL PROBLEM - General Chief Complaint: Cardiovascular Problem Stated Complaint: WEAK AND RAPID HEART RATE Time Seen by Provider: 06/26/18 13:46 Source of Information: Reports: Patient History Limitations: Reports: No Limitations - History of Present Illness INITIAL COMMENTS - FREE TEXT/NARRATIVE: The patient states that she developed palpitations, perioral and facial tingling , dyspnea, and generalized weakness with the feeling of walking on rubber legs, yesterday, then dizziness last night. She was seen at the walk-in clinic yesterday, where her heart rate and blood pressure were found to be normal. Here in the ED today, the patient states that she just feels weak. She is hemodynamically stable, although it is noted that her oxygen saturation is 100% on room air, consistent with hyperventilation. The patient states that she has had similar symptoms on and off for the past 6 months, but has not previously sought medical evaluation. The patient has a history of methamphetamine abuse and alcoholism. She states that the last time she injected methamphetamine was in late February 2018, and the last time she smoked marijuana was on 04/05/2018. She states that she has been sober for the past 4 years. She was in outpatient treatment in September 2017, but has not gone back since. The patient acknowledges that she drinks a lot of caffeinated beverages, including a 5 Hour Energy every morning, 3 Pepsi's per day, 1 red bottle per day, and coffee at night. The patient's PCP was Seda Reynolds. She has not found a replacement PCP. 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 Musculoskeletal History: Reports: Fracture Psychiatric History: Reports: Addiction, Anxiety, Depression - Infectious Disease History Infectious Disease History: Reports: Hepatitis C - Past Surgical History Musculoskeletal Surgical History: Reports: ORIF Social & Family History - Family History Family Medical History: Noncontributory - Tobacco Use Smoking Status *Q: Current Every Day Smoker Years of Tobacco use: 7 Packs/Tins Daily: 1 - Caffeine Use Caffeine Use: Reports: Coffee, Energy Drinks (2/day), Soda (3/day) - Recreational Drug Use Recreational Drug Use: Yes Drug Use in Last 12 Months: Yes Recreational Drug Type: Reports: Marijuana/Hashish, Methamphetamine - Living Situation & Occupation Living situation: Reports: Single, Alone Occupation: Employed ([email or web address]) ED ROS GENERAL - Review of Systems Review Of Systems: ROS reveals no pertinent complaints other than HPI. ED EXAM, GENERAL - Physical Exam Exam: See Below Exam Limited By: No Limitations General Appearance: Alert, WD/WN, No Apparent Distress, Anxious Eye Exam: Bilateral Eye: EOMI, Normal Inspection Ears: Normal External Exam, Hearing Grossly Normal Nose: Normal Inspection, No Blood Throat/Mouth: Normal Inspection, Normal Lips, Normal Voice, No Airway Compromise Head: Atraumatic, Normocephalic Neck: Normal Inspection, Full Range of Motion Respiratory/Chest: No Respiratory Distress, Lungs Clear, Normal Breath Sounds, No Accessory Muscle Use Cardiovascular: Normal Peripheral Pulses, Regular Rate, Rhythm, No Edema, No Gallop, No JVD, No Murmur, No Rub Peripheral Pulses: 4+: Radial (L), Radial (R) GI/Abdominal: Normal Bowel Sounds, Soft, Non-Tender, No Organomegaly, No Distention, No Abnormal Bruit, No Mass (Female) Exam: Deferred Rectal (Female) Exam: Deferred Back Exam: Normal Inspection, Full Range of Motion, NT Extremities: Normal Inspection, Normal Range of Motion, No Pedal Edema, Normal Capillary Refill Neurological: Alert, Oriented, CN II-XII Intact, Normal Cognition, No Motor/ Sensory Deficits Psychiatric: Anxious Skin Exam: Warm, Dry, Intact, Normal Color, No Rash EKG INTERPRETATION EKG Date: 06/26/18 Time: 13:47 Rhythm: NSR Rate (Beats/Min): 92 [place]: Normal P-Wave: Present QRS: Normal ST-T: Normal QT: Normal Comparison: No Change (05/07/2018) Course - Vital Signs Last Recorded V/S: Last Vital Signs Temp 36.9 C 06/26/18 13:49 Pulse 98 06/26/18 13:49 Resp 20 06/26/18 13:49 BP 125/73 06/26/18 13:49 Pulse Ox 97 06/26/18 13:49 Orthostatic Blood Pressure [ 105/74 Standing] Orthostatic Blood Pressure [ 104/68 Sitting] Orthostatic Blood Pressure [ 110/72 Supine] - Re-Assessments/Exams Free Text/Narrative Re-Assessment/Exam: 06/26/18 15:26 The patient is not quite orthostatic, but I am recommending that she receive fluid. This is likely cause of her dizziness. The patient states that she needs to go to work, and would prefer to drink Gatorade as opposed to receiving IV fluid. I suspect that the patient is suffering from anxiety, as evidenced by her symptoms, and her oxygen saturation of 100% on room air, reflecting hyperventilation. I will refer her to Stacy Castro, to discuss treatment options for anxiety. I am also recommending that she gradually decrease the amount of caffeine that she drinks daily, which may also help with her symptoms. Departure - Departure Time of Disposition: 15:28 Disposition: Home, Self-Care 01 Condition: Good Clinical Impression: Hyperventilation syndrome, Anxiety - Discharge Information *PRESCRIPTION DRUG MONITORING PROGRAM REVIEWED*: Not Applicable *COPY OF PRESCRIPTION DRUG MONITORING REPORT IN PATIENT BRITNEY: Not Applicable Instructions: Hyperventilation, Living With Anxiety Referrals: Stacy Castro PA [Physician Leasing Consultant] - Forms: ED Department Discharge Additional Instructions: You were seen in the emergency room for symptoms of generalized weakness, palpitations, shortness of breath, dizziness, tingling and numbness of your face , chest discomfort, and a feeling of walking on rubber legs. Workup in the ER included an ECG and positional blood pressure checks. Your ECG was normal, but your heart rate kieran significantly between lying and standing, indicating that you may be somewhat dry. We recommend that you aggressively hydrate over the next few days with Gatorade or Powerade. The remainder symptoms are likely due to anxiety. We recommend that you follow- up with Stacy Csatro to discuss treatment options for anxiety. If any other problems, please do not hesitate to return to the ER.
== END 2018-06-26 15:43 | disposition home or self-care (01) ==
LOC: JD.ED 13:34
DX: F41.9 Anxiety disorder, unspecified (principal); F32.9 Major depressive disorder, single episode, unspecified; F17.210 Nicotine dependence, cigarettes, uncomplicated; Z79.899 Other long term (current) drug therapy
CPT/HCPCS: 93005; 93010; 99284-25

== ENCOUNTER 2018-06-29 20:26 | Emergency (ER) | payer MEDICAID ==
[2018-06-29 20:36] VITALS: BP 157/99
--- NOTE | 2018-06-29 21:51 | EDM.PDOC ---
ED HPI GENERAL MEDICAL PROBLEM - General Chief Complaint: Upper Extremity Injury/Pain Stated Complaint: RHB NUMBNESS TO LEFT ARM Time Seen by Provider: 06/29/18 20:44 Source of Information: Reports: Patient, Old Records (ED 06/26/2018), RN Notes Reviewed History Limitations: Reports: No Limitations - History of Present Illness INITIAL COMMENTS - FREE TEXT/NARRATIVE: The patient states that she developed rapid palpitations around 20:30, just after she started to drink Pepsi, while at work. She then developed entire left upper extremity and left neck numbness while driving to the ED. Here in the ED, her oxygen saturation is noted to be 100% on room air. Patient is concerned that if her heart rate goes up, that she will suffer a heart attack. The patient was seen by me in this ED on 06/26/2018, with symptoms of generalized weakness, heart palpitations, dyspnea, chest pain, lightheadedness, tingling and numbness of her face, and the feeling of walking on rubber legs. Her oxygen saturation was noted to be 100% at that time, as well. She was found to be mildly orthostatic, but the remainder of her symptoms were felt due to hyperventilation syndrome, most likely due to anxiety. Her ECG was normal. She reported that she had similar symptoms on and off for the past 6 months, but has not previously sought medical evaluation. She has a history of anxiety and depression, both currently untreated. The patient also has a history of methamphetamine abuse, although reported that she has been clean since February 2018. She was referred to James Castro to discuss treatment options for anxiety. At this time, she states that she has not yet made an appointment to follow-up with Ms. Castro. 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 Musculoskeletal History: Reports: Fracture (left humerus) Psychiatric History: Reports: Addiction (methamphetamine, alcohol), Anxiety ( untreated), Depression (untreated) - Infectious Disease History Infectious Disease History: Reports: Hepatitis C (untreated) - Past Surgical History Musculoskeletal Surgical History: Reports: ORIF (left humerus) Social & Family History - Family History Family Medical History: Noncontributory Cardiac: Reports: [place] - Tobacco Use Smoking Status *Q: Current Every Day Smoker Years of Tobacco use: 11 Packs/Tins Daily: 0.5 Packs/Tins Daily Comment: Down from 1 ppd - Caffeine Use Caffeine Use: Reports: Coffee, Energy Drinks, Soda Other Caffeine Use: unknown - Alcohol Use Alcohol Use History: Yes Date/Time of Last Drink Comment: Alcoholic, in recovery since 2013 - Recreational Drug Use Recreational Drug Use: Yes Drug Use in Last 12 Months: Yes Recreational Drug Type: Reports: Benzodiazepines (last used February 2018), Marijuana /Hashish (last smoked March 2018), Methamphetamine (last injucted February 2018), Other (see below) (opioids - last used February 2018) Other Recreational Drug Type: states she hasn't used since march - Living Situation & Occupation Living situation: Reports: Single, Alone Occupation: Employed ([email or web address]) ED ROS GENERAL - Review of Systems Review Of Systems: ROS reveals no pertinent complaints other than HPI. ED EXAM, GENERAL - Physical Exam Exam: See Below Exam Limited By: No Limitations General Appearance: Alert, WD/WN, No Apparent Distress, Anxious Eye Exam: Bilateral Eye: EOMI, Normal Inspection Ears: Normal External Exam, Hearing Grossly Normal Nose: Normal Inspection, No Blood Throat/Mouth: Normal Inspection, Normal Lips, Normal Voice, No Airway Compromise Head: Atraumatic, Normocephalic Neck: Normal Inspection, Full Range of Motion Respiratory/Chest: No Respiratory Distress, Lungs Clear, Normal Breath Sounds, No Accessory Muscle Use Cardiovascular: Normal Peripheral Pulses, Regular Rate, Rhythm, No Gallop, No JVD, No Murmur, No Rub Peripheral Pulses: 4+: Radial (L), Radial (R) GI/Abdominal: Normal Bowel Sounds, Soft, Non-Tender, No Organomegaly, No Distention, No Abnormal Bruit, No Mass (Female) Exam: Deferred Rectal (Female) Exam: Deferred Back Exam: Normal Inspection, Full Range of Motion, NT Extremities: Normal Inspection, Normal Range of Motion, No Pedal Edema, Normal Capillary Refill Neurological: Alert, Oriented, Normal Cognition, No Motor/Sensory Deficits Psychiatric: Anxious Skin Exam: Warm, Dry, Intact, Normal Color, No Rash Course - Vital Signs Last Recorded V/S: Last Vital Signs Temp 36.6 C 06/29/18 20:32 Pulse 107 H 06/29/18 20:32 Resp 15 06/29/18 20:32 BP 157/99 H 06/29/18 20:32 Pulse Ox 100 06/29/18 20:32 - Re-Assessments/Exams Free Text/Narrative Re-Assessment/Exam: 06/29/18 21:46 It appears that she is again experiencing symptoms of hyperventilation syndrome. I reassured her that tachycardia will not cause her to have a heart attack. She was referred to James Castro the other day, but has not yet made an appointment to see her. I encouraged her to do so, to discuss treatment options for anxiety. I also suggested that they can discuss treatment options for the patient's hepatitis C, as well. The patient also requested a note for work, which was provided. Departure - Departure Time of Disposition: 21:51 Disposition: Home, Self-Care 01 Condition: Good Clinical Impression: Hyperventilation syndrome - Discharge Information *PRESCRIPTION DRUG MONITORING PROGRAM REVIEWED*: Not Applicable *COPY OF PRESCRIPTION DRUG MONITORING REPORT IN PATIENT BRITNEY: Not Applicable Instructions: Hyperventilation Referrals: James Castro PA [Physician Men'S Locker Room Attendant] - Forms: ED Department Discharge, ED Return to Work/School Form Additional Instructions: You were seen in the emergency room for rapid palpitations followed by left approximately and left neck numbness. In the ER, your oxygen saturation was found to be 100%, consistent with hyperventilation. Based on your history, in combination with your evaluation on 06/26/2018, your symptoms are MOST LIKELY due to anxiety. We recommend that you follow-up with James Castro as a PCP, to discuss treatment options for anxiety. Be aware that to your condition is treated, you will likely continue to have symptoms, and while unpleasant, they are not harmful to you. If any other problems, please do not hesitate to return to the ER.
== END 2018-06-29 22:03 | disposition home or self-care (01) ==
LOC: JD.ED 20:26
DX: F45.8 Other somatoform disorders (principal); F17.210 Nicotine dependence, cigarettes, uncomplicated; Z79.899 Other long term (current) drug therapy
CPT/HCPCS: 99283; 99284

== ENCOUNTER 2018-07-17 19:14 | Emergency (ER) | payer MEDICAID ==
[2018-07-17 20:05] VITALS: BP 137/88
== END 2018-07-17 19:50 | disposition left against medical advice (07) ==
LOC: JD.ED 19:14
DX: Z53.21 Procedure and treatment not carried out due to patient leaving prior to being seen by health care provider (principal)

== ENCOUNTER 2018-10-26 21:06 | Emergency (ER) | payer OTHER ==
[2018-10-26 21:43] VITALS: BP 137/80
--- NOTE | 2018-10-26 22:38 | EDM.PDOC ---
ED HPI GENERAL MEDICAL PROBLEM - General Chief Complaint: General Stated Complaint: MEDICATION PROBLEMS Time Seen by Provider: 10/26/18 22:32 - History of Present Illness INITIAL COMMENTS - FREE TEXT/NARRATIVE: 27-year-old female returns emergency room with some medication problems. The patient is on Zyprexa And I started her on Cogentin some time back she is doing much better instead of having these episodes every day she has one every 2 -3 weeks where she has involuntary movements. She has follow-up with her psychiatrist sometime early this month. Her last episode was a couple weeks ago. - Related Data Allergies Allergy/AdvReac Type Severity Reaction Status Date / Time No Known Allergies Allergy Verified 09/27/18 18:30 Home Meds: Home Meds Venlafaxine [Effexor] 225 mg PO DAILY 10/09/17 [History] traZODone 50 mg PO DAILY 10/09/17 [History] Benztropine [Cogentin] 1 mg PO BID #60 tab 09/14/18 [Rx] OLANZapine [ZyPREXA] 10 mg PO BID 09/14/18 [History] cloNIDine [cloNIDine HCl] 0.1 mg PO BID 09/14/18 [History] Past Medical History - Past Health History Medical/Surgical History: Denies Medical/Surgical History HEENT History: Reports: Impaired Vision Cardiovascular History: Reports: Other (See Below) Other Cardiovascular History: reports "racing" 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 History: pt states has two children Musculoskeletal History: Reports: Fracture Psychiatric History: Reports: Addiction, Anxiety, Depression, Hallucinations - Infectious Disease History Infectious Disease History: Reports: Hepatitis C - Past Surgical History Musculoskeletal Surgical History: Reports: ORIF Social & Family History - Family History Family Medical History: Noncontributory Cardiac: Reports: [place] - Tobacco Use Smoking Status *Q: Former Smoker Used Tobacco, but Quit: Yes Month/Year Tobacco Last Used: 4 months - Caffeine Use Caffeine Use: Reports: Coffee, Soda, Tea Other Caffeine Use: unknown - Recreational Drug Use Drug Use in Last 12 Months: No Other Recreational Drug Type: last used 6 months ago - Living Situation & Occupation Living situation: Reports: Single, Alone Occupation: Employed ([employer]) ED ROS GENERAL - Review of Systems Review Of Systems: See Below Constitutional: Reports: No Symptoms HEENT: Reports: Vertigo Cardiovascular: Reports: No Symptoms GI/Abdominal: Reports: No Symptoms ED EXAM, GENERAL - Physical Exam Exam: See Below Exam Limited By: No Limitations General Appearance: Alert, No Apparent Distress Respiratory/Chest: No Respiratory Distress, Lungs Clear, Normal Breath Sounds Cardiovascular: Regular Rate, Rhythm, No Edema, No Murmur Neurological: Alert, Oriented, Normal Cognition Psychiatric: Normal Affect, Normal Mood Course - Vital Signs Last Recorded V/S: Last Vital Signs Temp 36.6 C 10/26/18 21:42 Pulse 91 10/26/18 21:42 Resp 20 10/26/18 21:42 BP 137/80 10/26/18 21:42 Pulse Ox 100 10/26/18 21:42 - Orders/Labs/Meds Labs: Laboratory Tests 10/26/18 Range/Units 21:48 Urine Opiates Screen Negative (EXDRXT=820) Ur Buprenorphine Scrn Negative (CUTOFF=10) Ur Oxycodone Screen Negative (KEL3RQ=493) Urine Methadone Screen Negative (NZYAKW=282) Ur Propoxyphene Screen Negative (DJCBLQ=189) Ur Barbiturates Screen Negative (KTTFJC=304) Ur Tricyclics Screen Negative (VVURKX=428) Ur Phencyclidine Scrn Negative (CUTOFF=25) Ur Amphetamine Screen Negative (JHWNZJ=326) U Methamphetamines Scrn Negative (BWJRPR=884) U Benzodiazepines Scrn Negative (VFQZSQ=123) U Cocaine Metab Screen Negative (XATNYK=775) U Marijuana (THC) Screen Negative (CUTOFF=50) - Radiology Interpretation Free Text/Narrative:: Patient is gone from having at least one episode a day to have one episode every 2-3 weeks after being started on the Cogentin. I don't know that I can do her any benefit by adjusting her medications at this time. I discussed this with the patient and she seems to understand my best recommendation she follow- up with her psychiatrist Departure - Departure Time of Disposition: 22:42 Disposition: Home, Self-Care 01 Clinical Impression: Medication reaction - Discharge Information Referrals: PCP,None [Primary Care Provider] - Forms: ED Department Discharge Additional Instructions: Return to emergency room if any questions or problems. Follow-up with her psychiatrist as soon as you can. It sounds like you have an appointment coming up soon.
== END 2018-10-26 22:54 | disposition home or self-care (01) ==
LOC: SUPCPDRO 21:06 → JD.ED 21:06
DX: T44.3X5A Adverse effect of other parasympatholytics [anticholinergics and antimuscarinics] and spasmolytics, initial encounter (principal); T43.595A Adverse effect of other antipsychotics and neuroleptics, initial encounter; R29.898 Other symptoms and signs involving the musculoskeletal system; Z87.891 Personal history of nicotine dependence; Z79.899 Other long term (current) drug therapy
CPT/HCPCS: 80306; 99281; 99284

== ENCOUNTER 2020-02-05 20:49 | Emergency (ER) | payer BC ==
[2020-02-05 20:58] VITALS: BP 128/84; PULSE 94
[2020-02-05] MEDS ORDERED: Ondansetron 4 MG Tab.DIS PO ONE (21:06)
[2020-02-05] MEDS ORDERED: Ketorolac 30 MG/ML SDV IM ONE (21:06)
--- NOTE | 2020-02-05 21:16 | EDM.PDOC ---
ED HPI GENERAL MEDICAL PROBLEM - General Chief Complaint: Headache Stated Complaint: MIGRANES AND FEELING NAUSEAUS Time Seen by Provider: 02/05/20 20:53 Source of Information: Reports: Patient History Limitations: Reports: No Limitations - History of Present Illness INITIAL COMMENTS - FREE TEXT/NARRATIVE: Sridevi is a 29 year old female here for migraine. Reports intermittent migraines for the last month. Reports associated nausea. Reports vomiting yesterday. No numbness or tingling. No auras. She has not had migraines until one month ago. Taking excedrine migraine with some relief. no chance of . She states she left work today and called into work yesterday. She states she is primarily here for a work note. Frontal Headache Pain Score (Numeric/FACES): 4 - Related Data Allergies Allergy/AdvReac Type Severity Reaction Status Date / Time No Known Allergies Allergy Verified 02/05/20 20:55 Home Meds: Home Meds Venlafaxine [Effexor] 225 mg PO DAILY 10/09/17 [History] Benztropine [Cogentin] 1 mg PO BID #60 tab 09/14/18 [Rx] OLANZapine [ZyPREXA] 10 mg PO DAILY 09/14/18 [History] Ondansetron [Zofran ODT] 4 mg PO Q8H PRN #12 tab.dis 02/05/20 [Rx] Past Medical History - Past Health History Medical/Surgical History: Denies Medical/Surgical History HEENT History: Reports: Impaired Vision Cardiovascular History: Reports: Other (See Below) Other Cardiovascular History: reports "racing" 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: pt states has two children Musculoskeletal History: Reports: Fracture Psychiatric History: Reports: Addiction, Anxiety, Depression, Hallucinations - Infectious Disease History Infectious Disease History: Reports: Hepatitis C - Past Surgical History Musculoskeletal Surgical History: Reports: ORIF Social & Family History - Family History Family Medical History: Noncontributory Cardiac: Reports: [place] - Tobacco Use Smoking Status *Q: Current Every Day Smoker Years of Tobacco use: 10 Packs/Tins Daily: 0.7 - Caffeine Use Caffeine Use: Reports: Coffee, Soda, Tea Other Caffeine Use: unknown - Recreational Drug Use Recreational Drug Use: No - Living Situation & Occupation Living situation: Reports: Single, Alone Occupation: Employed ([employer]) ED ROS GENERAL - Review of Systems Review Of Systems: See Below GI/Abdominal: Reports: Nausea, Vomiting Neurological: Reports: Headache. Denies: Numbness, Tingling - Physical Exam Exam: See Below Exam Limited By: No Limitations General Appearance: Alert, WD/WN, No Apparent Distress Eye Exam: Bilateral Eye: Normal Inspection, PERRL Ears: Normal External Exam, Normal Canal, Hearing Grossly Normal, Normal TMs Nose: Normal Inspection Throat/Mouth: Normal Inspection, Normal Lips, Normal Voice, No Airway Compromise Head Exam: Atraumatic, Normocephalic Neck: Normal Inspection, Full Range of Motion Respiratory/Chest: No Respiratory Distress, Lungs Clear, Normal Breath Sounds Cardiovascular: Normal Peripheral Pulses, Regular Rate, Rhythm, No Murmur Neuro Exam (Abbreviated): Alert, Oriented, Normal Cognition, Normal Gait Psychiatric: Normal Affect, Normal Mood Skin Exam: Warm, Dry, Normal Color Course - Vital Signs Last Recorded V/S: Last Vital Signs Temp 98.5 F 02/05/20 20:56 Pulse 94 02/05/20 20:56 Resp 16 02/05/20 20:56 BP 128/84 02/05/20 20:56 Pulse Ox 96 02/05/20 20:56 - Orders/Labs/Meds Meds: Medications Discontinued Medications Generic Name Dose Route Start Last Admin Trade Name Freq PRN Reason Stop Dose Admin Ketorolac Tromethamine 30 mg 02/05/20 21:06 02/05/20 21:13 Toradol IM 02/05/20 21:07 30 mg ONETIME ONE Administration Ondansetron HCl 4 mg 02/05/20 21:06 02/05/20 21:13 Zofran Odt PO 02/05/20 21:07 4 mg ONETIME ONE Administration Departure - Departure Time of Disposition: 21:13 Disposition: Home, Self-Care 01 Condition: Good Clinical Impression: Migraine - Discharge Information *PRESCRIPTION DRUG MONITORING PROGRAM REVIEWED*: No *COPY OF PRESCRIPTION DRUG MONITORING REPORT IN PATIENT BRITNEY: No Prescriptions: Ondansetron [Zofran ODT] 4 mg PO Q8H PRN #12 tab.dis PRN Reason: Nausea Referrals: PCP,None [Primary Care Provider] - Izzy Castro PA-C [Physician Inventory Representative] - Forms: ED Department Discharge, ED Return to Work/School Form Additional Instructions: Go home and rest. Make sure you are drinking plenty of fluids. note for work given. Zofran 1 tab sublingual every 8 hours prn nausea. OTC tylenol or motrin as needed for pain. Follow-up with your PCP if your symptoms are not improving. Please return to the ER should your symptoms change or worsen. Sepsis Event Note - Evaluation Sepsis Screening Result: No Definite Risk - Focused Exam Vital Signs: Vital Signs Temp Pulse Resp BP Pulse Ox 02/05/20 20:56 98.5 F 94 16 128/84 96 Date Exam was Performed: 02/05/20 Time Exam was Performed: 21:16
== END 2020-02-05 21:22 | disposition home or self-care (01) ==
LOC: JD.ED 20:49
DX: G43.909 Migraine, unspecified, not intractable, without status migrainosus (principal); F41.9 Anxiety disorder, unspecified; F32.9 Major depressive disorder, single episode, unspecified; F17.210 Nicotine dependence, cigarettes, uncomplicated; Z79.899 Other long term (current) drug therapy
CPT/HCPCS: 96372; 99283; A9270; J1885

== ENCOUNTER 2021-01-09 19:29 | Emergency (ER) | payer SELFPAY ==
[2021-01-09 19:50] VITALS: BP 118/72; PULSE 92
--- NOTE | 2021-01-09 20:10 | EDM.PDOC ---
ED HPI GENERAL MEDICAL PROBLEM - General Chief Complaint: Lower Extremity Injury/Pain Stated Complaint: LEG INJURY Time Seen by Provider: 01/09/21 19:39 Source of Information: Reports: Patient, RN Notes Reviewed History Limitations: Reports: No Limitations - History of Present Illness INITIAL COMMENTS - FREE TEXT/NARRATIVE: Patient is a 30-year-old female who presents to the ED for a left knee injury. Patient reports 2 weeks ago that she was running on a treadmill when she felt something rip or tear in her left knee. She went to the walk-in clinic last week for evaluation, she notes they did x-rays, and gave her a prescription for Voltaren cream however she states that she was not able to afford the cream so she did not fill that prescription. She has been using Tylenol for pain management but it does not seem to be relieving the pain much at all, her last dose of this was at around 3 PM she states that she had to leave work today because it is so painful. She points to her inferior medial knee as a source of her pain. She states that it is more painful when she stands on the knee, and with any sort of movement. She is complaining of some swelling to the area as well, she went to a massage therapist yesterday and notes that they put some tape on the knee, but it did not seem to help much so she removed it. She is concerned for possible ligamentous injury, and was wondering about a possible MRI referral. She further denies any fevers or chills, cough or shortness of breath, nausea/vomiting/diarrhea. She is not having any numbness or tingling distal to the injury. She is having no pain that shoots up into her leg. She does not have a primary care provider. Right Knee Pain Score (Numeric/FACES): 9 - Related Data Allergies Allergy/AdvReac Type Severity Reaction Status Date / Time No Known Allergies Allergy Verified 01/09/21 19:50 Home Meds: Home Meds Venlafaxine [Effexor] 225 mg PO DAILY 10/09/17 [History] Benztropine [Cogentin] 1 mg PO BID #60 tab 09/14/18 [Rx] OLANZapine [ZyPREXA] 10 mg PO DAILY 09/14/18 [History] Naproxen [Naprosyn] 500 mg PO Q12HR #14 tab 01/09/21 [Rx] Past Medical History - Past Health History Medical/Surgical History: Denies Medical/Surgical History HEENT History: Reports: Impaired Vision Cardiovascular History: Reports: Other (See Below) Other Cardiovascular History: reports "racing" 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 states 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 two 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 Musculoskeletal History: Reports: Fracture Psychiatric History: Reports: Addiction, Anxiety, Depression, Hallucinations - Infectious Disease History Infectious Disease History: Reports: Hepatitis C - Past Surgical History Musculoskeletal Surgical History: Reports: ORIF Other Musculoskeletal Surgeries/Procedures:: left arm Social & Family History - Family History Family Medical History: No Pertinent Family History Cardiac: Reports: [place] - Tobacco Use Tobacco Use Status *Q: Current Every Day Tobacco User Years of Tobacco use: 15 Packs/Tins Daily: 0.5 - Caffeine Use Caffeine Use: Reports: None Other Caffeine Use: unknown - Recreational Drug Use Drug Use in Last 12 Months: No - Living Situation & Occupation Living situation: Reports: Single, Alone Occupation: Employed ([employer]) Review of Systems - Review of Systems Review Of Systems: Comprehensive ROS is negative, except as noted in HPI. ED EXAM, GENERAL - Physical Exam Exam: See Below Exam Limited By: No Limitations General Appearance: Alert, WD/WN, No Apparent Distress Respiratory/Chest: No Respiratory Distress, Lungs Clear, Normal Breath Sounds, No Accessory Muscle Use, Chest Non-Tender Cardiovascular: Normal Peripheral Pulses, Regular Rate, Rhythm, No Edema Peripheral Pulses: 2+: Dorsalis Pedis (L), Dorsalis Pedis (R) Extremities: Normal Inspection, Normal Capillary Refill, Limited Range of Motion (d/t pain in the knee) Neurological: Alert, Oriented, Normal Cognition, No Motor/Sensory Deficits Psychiatric: Normal Affect, Normal Mood Skin Exam: Warm, Dry, Intact, Normal Color, No Rash Course - Vital Signs Last Recorded V/S: Last Vital Signs Temp 98.0 F 01/09/21 19:40 Pulse 92 01/09/21 19:40 Resp 20 01/09/21 19:40 BP 118/72 01/09/21 19:40 Pulse Ox 97 01/09/21 19:40 - Re-Assessments/Exams Free Text/Narrative Re-Assessment/Exam: 01/09/21 20:18 Patient presents to the ED for her left knee injury. I do believe that an MRI would be the best modality for imaging, and have placed an outpatient order on her behalf. I will give her a prescription for Naprosyn for pain management, and I do believe you can get Voltaren cream [id number] so she should not need a prescription for this, I did make her aware of this and told her where she could likely find this in [facility]. Patient verbalized understanding Departure - Departure Time of Disposition: 20:05 Disposition: Home, Self-Care 01 Condition: Good Clinical Impression: Knee pain, left Qualifiers: Chronicity: acute Qualified Code(s): M25.562 - Pain in left knee - Discharge Information *PRESCRIPTION DRUG MONITORING PROGRAM REVIEWED*: No *COPY OF PRESCRIPTION DRUG MONITORING REPORT IN PATIENT BRITNEY: No Prescriptions: Naproxen [Naprosyn] 500 mg PO Q12HR #14 tab Instructions: Joint Pain, [id number] Referrals: Luis Tolliver MD [Physician] - 2 Weeks (f/u after L knee MRI) Renetta Fulton PA-C [Physician Systems Design Engineer] - 2 Weeks (f/u after L knee MRI) Forms: ED Department Discharge, ED Return to Work/School Form Additional Instructions: You were seen in this ER for your ongoing left knee pain. An MRI order has been placed on your behalf, our x-ray department will call you to schedule you for this appointment. If you do not hear from our x-ray department by late Noam morning or afternoon, please call [phone] and asked to speak to radiology to see about scheduling your appointment. You will need to follow-up with a provider for results of this imaging a referral has been put in for our inclusion specialist, Dr. Tolliver and his physician assistant plant control operator, Renetta Fulton for management of this, highly recommend you set up with a primary care provider of choice, you may call our clinic at [phone] to make an appoint with any family practice provider for ongoing health management. You were given a prescription for Naprosyn, this is an extra strength Aleve tablet you may take 1 tablet 2 times a day for ongoing pain management. Please try to ice the knee or use heat to the knee as much as possible to provide further relief from pain/swelling. You may obtain diclofenac (Voltaren) cream at any pharmacy or retail store like [email or web address], this might be in the pain reliever aisle. You should not need a prescription for the Voltaren. You may use your knee brace for further compression if this seems to help to relieve the pain. Please take it easy over the next few days, to help try to give the knee some time to heal. Please return to the ER at any time if symptoms change or worsen. Sepsis Event Note (ED) - Evaluation Sepsis Screening Result: No Definite Risk - Focused Exam Vital Signs: Vital Signs Temp Pulse Resp BP Pulse Ox 01/09/21 19:40 98.0 F 92 20 118/72 97
== END 2021-01-09 20:26 | disposition home or self-care (01) ==
LOC: JD.ED 19:29
DX: M25.562 Pain in left knee (principal); Z72.0 Tobacco use
CPT/HCPCS: 99283

== ENCOUNTER 2023-05-17 10:31 | Emergency (ER) | payer MEDICAID, OTHER ==
[2023-05-17 10:50] VITALS: BP 148/102
[2023-05-17 12:12] VITALS: PULSE 85
== END 2023-05-17 11:48 | disposition home or self-care (01) ==
LOC: JD.ED 10:31
DX: F41.0 Panic disorder [episodic paroxysmal anxiety] (principal); Z79.899 Other long term (current) drug therapy
CPT/HCPCS: 99283

== ENCOUNTER 2024-05-04 07:58 | Emergency (ER) | payer OTHER ==
[2024-05-04 09:08] LABS: BASOPHILS ABSOLUTE AUTO 0.1 K/mm3 (0.0-0.2); BASOPHILS PERCENT AUTO 0.7 % (0.0-1.0); EOSINOPHILS PERCENT AUTO 0.2 % (0.0-6.0); HEMATOCRIT 37.8 % (37.0-47.0); HEMOGLOBIN 12.7 gm/dl (12.0-16.0); IMMATURE GRAN ABSOLUTE AUTO 0.03 K/mm3 (0.00-0.05); IMMATURE GRAN PERCENT AUTO 0.4 % (0.0-0.4); LYMPHOCYTES ABSOLUTE AUTO 1.6 K/mm3 (1.0-4.8); LYMPHOCYTES PERCENT AUTO 20.4 % (24.0-44.0); MEAN CORPUSCULAR HEMOGLOBIN 30.8 pg (28.0-32.0); MEAN CORPUSCULAR HGB CONC 33.6 g/dl (32.0-36.0); MEAN CORPUSCULAR VOLUME 91.7 fl (83.0-99.0); MEAN PLATELET VOLUME 10.7 fl (9.4-12.3); MONOCYTES ABSOLUTE AUTO 0.4 K/mm3 (0.0-0.8); MONOCYTES PERCENT AUTO 4.5 % (0.0-8.0); NEUTROPHILS ABSOLUTE AUTO 5.9 K/mm3 (1.8-7.7); NEUTROPHILS PERCENT AUTO 73.8 % (41.0-71.0); PLATELET COUNT,PLT 188 K/mm3 (150-400); RED BLOOD CELL COUNT 4.12 M/mm3 (4.10-5.30); WHITE BLOOD CELL COUNT,WBC 8.04 K/mm3 (3.9-11.3)
[2024-05-04 09:39] LABS: A/G RATIO 1.3 (1-2); ALBUMIN 3.9 g/dl (3.4-5.0); ANION GAP 16.7 (5-15); BILIRUBIN TOTAL 0.9 mg/dL (0.2-1.0); BUN/CREATININE RATIO 12.5 (14-18); CALCIUM 8.8 mg/dL (8.5-10.1); CREATININE 0.8 mg/dL (0.55-1.02); EST CRCL DRUG DOSING (CG) 93.63 mL/min; POTASSIUM,K 3.7 mEq/L (3.5-5.1); PROTEIN TOTAL,TP 6.8 g/dl (6.4-8.2); TSH 1.565 uIU/mL (0.358-3.74)
[2024-05-04 10:11] LABS: BARBITURATE SCREEN,URINE NEGATIVE (CUTOFF=200); BENZODIAZEPINES SCREEN,URINE NEGATIVE (CUTOFF=150); BUPRENORPHINE SCREEN,URINE NEGATIVE (CUTOFF=10); METHADONE SCREEN, URINE NEGATIVE (CUTOFF=200); METHAMPHETAMINES SCREEN, URINE NEGATIVE (CUTOFF=500); OXYCODONE SCREEN,URINE NEGATIVE (CUT0FF=100); THC SCREEN,URINE 20 NG/ML NEGATIVE (CUTOFF=50)
[2024-05-04 10:25] LABS: AMPHETAMINES SCREEN, URINE NEGATIVE (CUTOFF=500)
[2024-05-04 12:28] VITALS: BP 124/88; PULSE 78
== END 2024-05-04 11:55 | disposition home or self-care (01) ==
LOC: JD.ED 07:58
DX: R44.0 Auditory hallucinations (principal); Z79.899 Other long term (current) drug therapy
CPT/HCPCS: 36415; 80053; 80306; 80307; 84443; 84703; 85025; 99283; 99285

== ENCOUNTER 2024-05-11 20:50 | Emergency (ER) | payer OTHER ==
[2024-05-11 21:53] LABS: BASOPHILS ABSOLUTE AUTO 0.1 K/mm3 (0.0-0.2); BASOPHILS PERCENT AUTO 0.9 % (0.0-1.0); EOSINOPHILS ABSOLUTE AUTO 0.1 K/mm3 (0.0-0.4); EOSINOPHILS PERCENT AUTO 1.7 % (0.0-6.0); HEMATOCRIT 39.6 % (37.0-47.0); HEMOGLOBIN 13.2 gm/dl (12.0-16.0); IMMATURE GRAN ABSOLUTE AUTO 0.02 K/mm3 (0.00-0.05); IMMATURE GRAN PERCENT AUTO 0.3 % (0.0-0.4); LYMPHOCYTES ABSOLUTE AUTO 2.5 K/mm3 (1.0-4.8); LYMPHOCYTES PERCENT AUTO 37.4 % (24.0-44.0); MEAN CORPUSCULAR HEMOGLOBIN 30.9 pg (28.0-32.0); MEAN CORPUSCULAR HGB CONC 33.3 g/dl (32.0-36.0); MEAN CORPUSCULAR VOLUME 92.7 fl (83.0-99.0); MEAN PLATELET VOLUME 10.8 fl (9.4-12.3); MONOCYTES ABSOLUTE AUTO 0.5 K/mm3 (0.0-0.8); MONOCYTES PERCENT AUTO 6.8 % (0.0-8.0); NEUTROPHILS ABSOLUTE AUTO 3.5 K/mm3 (1.8-7.7); NEUTROPHILS PERCENT AUTO 52.9 % (41.0-71.0); PLATELET COUNT,PLT 179 K/mm3 (150-400); RED BLOOD CELL COUNT 4.27 M/mm3 (4.10-5.30); WHITE BLOOD CELL COUNT,WBC 6.61 K/mm3 (3.9-11.3)
[2024-05-11 22:00] LABS: BARBITURATE SCREEN,URINE NEGATIVE (CUTOFF=200); BENZODIAZEPINES SCREEN,URINE NEGATIVE (CUTOFF=150); BUPRENORPHINE SCREEN,URINE NEGATIVE (CUTOFF=10); METHADONE SCREEN, URINE NEGATIVE (CUTOFF=200); METHAMPHETAMINES SCREEN, URINE NEGATIVE (CUTOFF=500); OXYCODONE SCREEN,URINE NEGATIVE (CUT0FF=100); THC SCREEN,URINE 20 NG/ML NEGATIVE (CUTOFF=50)
[2024-05-11 22:01] LABS: AMPHETAMINES SCREEN, URINE NEGATIVE (CUTOFF=500)
[2024-05-11 22:18] LABS: A/G RATIO 1.3 (1-2); ANION GAP 14.4 (5-15); BILIRUBIN TOTAL 0.3 mg/dL (0.2-1.0); BUN/CREATININE RATIO 8.9 (14-18); CALCIUM 8.8 mg/dL (8.5-10.1); CREATININE 0.9 mg/dL (0.55-1.02); EST CRCL DRUG DOSING (CG) 83.23 mL/min; POTASSIUM,K 3.4 mEq/L (3.5-5.1)
[2024-05-12] MEDS: OLANZapine 5 MG Tab PO ONE (06:54)
[2024-05-12 11:49] VITALS: BP 121/76; PULSE 76
== END 2024-05-12 11:45 | disposition home or self-care (01) ==
LOC: JD.ED 20:50
DX: R44.0 Auditory hallucinations (principal); Z79.899 Other long term (current) drug therapy
CPT/HCPCS: 36415; 80053; 80143; 80179; 80306; 80307; 84703; 85025; 93005; 99285; A9270; 93010; 99283

== ENCOUNTER 2024-06-17 19:29 | Emergency (ER) | payer BC, OTHER ==
[2024-06-17 19:47] VITALS: BP 136/71; PULSE 108
== END 2024-06-17 20:35 | disposition home or self-care (01) ==
LOC: JD.ED 19:29
DX: Z87.891 Personal history of nicotine dependence (principal)
CPT/HCPCS: 99283

== ENCOUNTER 2024-06-27 13:53 | Emergency (ER) | payer BC ==
[2024-06-27 14:44] VITALS: PULSE 94
[2024-06-27 16:38] VITALS: BP 118/88
== END 2024-06-27 16:30 | disposition home or self-care (01) ==
LOC: JD.ED 13:53
DX: R25.1 Tremor, unspecified (principal)
CPT/HCPCS: 99282; 99283